=== PATIENT | female | born 1995 | race Caucasian/White ===

== ENCOUNTER 2019-10-30 16:09 | Emergency (ER) | payer BC ==
[~2019-10-30] VITALS: Ht 177.8 cm; Wt 81.8 kg
--- NOTE | 2019-10-30 17:05 | PHYS DOC ---
Past Medical History Past Medical History: Other Additional Past Medical Histor: PCOS Past Surgical History: Cholecystectomy Smoking Status: Former Smoker Alcohol Use: None General Adult EDM: Chief Complaint: ABDOMINAL PAIN IN HPI: HPI: Patient is a 24 year old female who presents with states her last menstrual cycle was September 07, 2019. She has a history of PCOS. She found out last week that she was . She did go to an OB doctor and have it confirmed for her first . She states that she usually always has lower abdominal pain that is constant due to her PCOS but she found out she is she is been very anxious and feels like the pain is exacerbated. She states that she feels pinching in the low mid abdomen that will at times radiate to the left lower side. She states the pain will get better and then get worse or the days. Patient denies dysuria, actual bleeding, abnormal vaginal discharge, fever, c hest pain, shortness of air, cough, dizziness, headache, nausea, and vomiting, diarrhea. She currently rates her pain a 2 out of 10. She denies wanting any Tylenol at this time. Review of Systems: Review of Systems: Constitutional: Denies fever or chills. [] Eyes: Denies change in visual acuity. [] HENT: Denies nasal congestion or sore throat. [] Respiratory: Denies cough or shortness of breath. [] Cardiovascular: Denies chest pain or edema. [] GI: low mid with radiation tot he left abdominal pain, denies nausea, vomiting, bloody stools or diarrhea. [] : Denies dysuria. [] Musculoskeletal: Denies back pain or joint pain. [] Integument: Denies rash. [] Neurologic: Denies headache, focal weakness or sensory changes. [] Endocrine: Denies polyuria or polydipsia. [] Lymphatic: Denies swollen glands. [] Psychiatric: Denies depression or anxiety. [] Heart Score: Risk Factors: Risk Factors: DM, Current or recent (<one month) smoker, HTN, HLP, family history of CAD, obesity. Risk Scores: Score 0 - 3: 2.5% MACE over next 6 weeks - Discharge Home Score 4 - 6: 20.3% MACE over next 6 weeks - Admit for Clinical Observation Score 7 - 10: 72.7% MACE over next 6 weeks - Early Invasive Strategies Physical Exam: PE: Constitutional: Well developed, well nourished, no acute distress, non-toxic appearance. [] HENT: Normocephalic, atraumatic, bilateral external ears normal, oropharynx moist, no oral exudates, nose normal. [] Eyes: PERRLA, EOMI, conjunctiva normal, no discharge. [] Neck: Normal range of motion, no tenderness, supple, no stridor. [] Cardiovascular:Heart rate regular rhythm, no murmur [] Lungs & Thorax: Bilateral breath sounds clear to auscultation [] Abdomen: Bowel sounds normal, soft, Low mid tenderness, no masses, no pulsatile masses. [] Skin: Warm, dry, no erythema, no rash. [] Back: No tenderness, no CVA tenderness. [] Extremities: No tenderness, no cyanosis, no clubbing, ROM intact, no edema. [] Neurologic: Alert and oriented X 3, normal motor function, normal sensory function, no focal deficits noted. [] Psychologic: Affect normal, judgement normal, mood normal. [] Current Patient Data: Labs: Laboratory Tests Test 10/30/19 16:23 POC Urine HCG, Qualitative Hcg positive (Negative) Vital Signs: Vital Signs Date Time Temp Pulse Resp B/P (MAP) Pulse Ox O2 Delivery O2 Flow Rate FiO2 10/30/19 16:10 98.2 77 14 125/77 (93) 100 Room Air 98.2 EKG: EKG: [] Radiology/Procedures: Radiology/Procedures: [] Impression: [facility] [address] [place] [address] IMAGING REPORT Signed PATIENT: JASON JAIME ACCOUNT: [id number] : 1995 LOCATION: ER AGE: 24 SEX: F EXAM STATUS: REG ER ORD. PHYSICIAN: WEN HAIRSTON APRN REASON: abdominal pain PROCEDURE: OB <14 WKS W/TV EXAM: First Trimester OB Ultrasound INDICATION: Reason: abdominal pain / Spl. Instructions: / History: TECHNIQUE: Real-time first trimester obstetrical ultrasound was performed with permanent freeze-frame documentation. Transabdominal and endovaginal ultrasound was performed. COMPARISON: None. FINDINGS: GESTATIONAL SAC: Gestational sac shape and amniotic fluid volume within normal limits. POLE: Unremarkable. Yolk sac visualized. CROWN RUMP LENGTH: 0.7 cm HEART RATE: 122 bpm PLACENTA: Too early to adequately assess. MATERNAL UTERUS: Unremarkable. MATERNAL ADNEXA: Normal left ovary measuring 3.5 x 1.9 x 1.9 cm. The right ovary measures 5.3 x 3.1 x 3.5 cm and contains a 2.2 cm cyst, possible corpus luteum. AGE/DATES: Gestational Age by LMP: 17 weeks 4 days Gestational Age by US: 6 weeks 4 days EDC by LMP: June 13, 2020 EDC by US: June 20, 2020 IMPRESSION: Normal viable first trimester OB ultrasound. Estimated gestational age of 6 weeks 4 days and EDC of June 21, 2019. Electronically signed by: Aneesh Coyle MD (10/30/2019 5:42 PM) [id number] DICTATED and SIGNED BY: ANEESH COYLE MD DATE: 10/30/19 1742 Course & Med Decision Making: Course & Med Decision Making Pertinent Labs and Imaging studies reviewed. (See chart for details) Alert and oriented x2. Speaks in full complete sentences. Ambulatory with a steady gait. Abdomen is soft but low mid abdomen is slightly tender with palpation. Skin is pink warm and dry. Afebrile. [] Dragon Disclaimer: Elise Disclaimer: This electronic medical record was generated, in whole or in part, using a voice recognition dictation system. Departure Departure Impression: Primary Impression: Abdominal pain affecting Disposition: HOME, SELF-CARE Condition: STABLE Referrals: UNKNOWN PCP NAME (PCP) Patient Instructions: Abdominal Pain During Additional Instructions: Follow-up with your OB doctor as scheduled. If you begin having any vaginal bleeding or running a fever you can return to the emergency room or call your OB doctor for a scheduled appointment. Drink plenty of fluids. Justicifation of Admission Dx: Justifications for Admission: Justification of Admission Dx: N/A WEN HAIRSTON APRN Oct 30, 2019 17:05
[2019-10-30 17:11] LABS: BASO # 0.1 x10^3/uL (0.0-0.2); BASO % 0 % (0-3); EOS # 0.1 x10^3/uL (0.0-0.7); EOS % 1 % (0-3); HEMATOCRIT 44.7 % (36.0-47.0); HEMOGLOBIN 15.3 g/dL (12.0-15.5); LYMPH % 13 % (24-48); MEAN CORPUSCULAR HEMOGLOBIN 31 pg (25-35); MEAN CORPUSCULAR HGB CONC 34 g/dL (31-37); MEAN CORPUSCULAR VOLUME 89 fL (79-100); MONO # 0.8 x10^3/uL (0.0-1.1); MONO % 5 % (0-9); NEUT # 12.6 x10^3/uL (1.8-7.7); NEUT % 81 % (31-73); PLATELET COUNT 377 x10^3/uL (140-400); RED BLOOD COUNT 5.03 x10^6/uL (3.50-5.40); RED CELL DISTRIBUTION WIDTH 12.9 % (11.5-14.5); WHITE BLOOD COUNT 15.6 x10^3/uL (4.0-11.0)
[2019-10-30 17:13] LABS: BILIRUBIN,URINE NEGATIVE (NEG); CLARITY,URINE CLEAR; COLOR,URINE YELLOW; NITRITE,URINE NEGATIVE (NEG); PH,URINE 6.5 (<5.0-8.0); PROTEIN,URINE NEGATIVE (NEG-TRACE); UROBILINOGEN,URINE 0.2 mg/dL (0.2 mg/dL)
[2019-10-30 17:20] LABS: PROTHROMBIN TIME PATIENT 12.8 SEC (11.7-14.0)
[2019-10-30 17:23] LABS: CALCIUM 9.6 mg/dL (8.5-10.1); CREATININE 0.7 mg/dL (0.6-1.0); GFR 102.8; POTASSIUM 4.6 mmol/L (3.5-5.1)
[2019-10-30 17:28] LABS: ALBUMIN 4.2 g/dL (3.4-5.0); ALBUMIN/GLOBULIN RATIO 1.2 (1.0-1.7); TOTAL BILIRUBIN 0.4 mg/dL (0.2-1.0); TOTAL PROTEIN 7.6 g/dL (6.4-8.2)
[2019-10-30 17:31] LABS: SQUAMOUS EPITHELIAL CELL,UR MANY /LPF
[2019-10-30 17:32] LABS: BACTERIA,URINE MANY /HPF (0-FEW)
[2019-10-30 17:34] LABS: RBC,URINE 0 /HPF (0-2); WBC,URINE OCC /HPF (0-4)
--- NOTE | 2019-10-30 17:45 | RAD ---
EXAM: First Trimester OB Ultrasound INDICATION: Reason: abdominal pain / Spl. Instructions: / History: TECHNIQUE: Real-time first trimester obstetrical ultrasound was performed with permanent freeze-frame documentation. Transabdominal and endovaginal ultrasound was performed. COMPARISON: None. FINDINGS: GESTATIONAL SAC: Gestational sac shape and amniotic fluid volume within normal limits. POLE: Unremarkable. Yolk sac visualized. CROWN RUMP LENGTH: 0.7 cm HEART RATE: 122 bpm PLACENTA: Too early to adequately assess. MATERNAL UTERUS: Unremarkable. MATERNAL ADNEXA: Normal left ovary measuring 3.5 x 1.9 x 1.9 cm. The right ovary measures 5.3 x 3.1 x 3.5 cm and contains a 2.2 cm cyst, possible corpus luteum. AGE/DATES: Gestational Age by LMP: 17 weeks 4 days Gestational Age by US: 6 weeks 4 days EDC by LMP: June 13, 2020 EDC by US: June 20, 2020 IMPRESSION: Normal viable first trimester OB ultrasound. Estimated gestational age of 6 weeks 4 days and EDC of June 21, 2019. Electronically signed by: Brian Hernadez MD (10/30/2019 5:42 PM) [id number]
[2019-10-30 17:55] LABS: % BANDS 3 % (0-9); % LYMPHS 19 % (24-48); % MONOS 3 % (0-10); % SEGS 75 % (35-66)
[2019-10-30 17:57] LABS: PLT ESTIMATE ADEQUATE (ADEQUATE); TOXIC GRANULATION SLIGHT
[2019-10-30 18:00] VITALS: BP 129/57
== END 2019-10-30 18:29 | disposition home or self-care (01) ==
LOC: ER 16:09
DX: O26.891 Other specified pregnancy related conditions, first trimester (principal); R10.30 Lower abdominal pain, unspecified; Z90.49 Acquired absence of other specified parts of digestive tract; Z87.891 Personal history of nicotine dependence; Z3A.01 Less than 8 weeks gestation of pregnancy
CPT/HCPCS: 36415; 76801; 76817; 80053; 81001; 81025; 84702; 85007; 85025; 85610; 87086; 99284

== ENCOUNTER 2019-11-15 22:10 | Emergency (ER) | payer BC ==
[~2019-11-15] VITALS: Ht 180.3 cm; Wt 81.8 kg
[2019-11-15 22:48] LABS: BILIRUBIN,URINE NEGATIVE (NEG); CLARITY,URINE CLEAR; NITRITE,URINE NEGATIVE (NEG); PROTEIN,URINE NEGATIVE (NEG-TRACE); UROBILINOGEN,URINE 0.2 mg/dL (0.2 mg/dL)
[2019-11-15 22:53] LABS: COLOR,URINE STRAW
[2019-11-15 22:55] LABS: BACTERIA,URINE 0 /HPF (0-FEW); RBC,URINE RARE /HPF (0-2); SQUAMOUS EPITHELIAL CELL,UR OCC /LPF; WBC,URINE 0 /HPF (0-4)
[2019-11-16 00:39] VITALS: BP 121/59
--- NOTE | 2019-11-16 01:31 | RAD ---
INDICATION: Reason: vaginal bleeding; abdomen pain; prev sono done 10/30/2019 / Spl. Instructions: / History: COMPARISON: October 30, 2019 TECHNIQUE: Grayscale and color ultrasound images uterus and adnexa. Transabdominal and transvaginal images obtained. Transvaginal images were needed to better visualize structures that were limited on transabdominal imaging. FINDINGS: Uterus: 102 x 79 x 58 mm. Intrauterine gestational sac is identified with a pole with a crown-rump length of 24 mm heartbeat of 173. Probable corpus luteum cyst right ovary. 2 early in to adequately assess placenta. Right Ovary: 45 x 29 x 27 mm. Left Ovary: 36 x 29 x 29 mm. Vascular flow identified to bilateral ovaries. IMPRESSION: * Intrauterine is identified with estimated gestational age of 9 weeks and 1 day with a positive heartbeat. Recommend routine anomaly screening at 18-22 weeks. Electronically signed by: Obdulio Abbott MD (11/16/2019 1:28 AM) [id number]
--- NOTE | 2019-11-16 01:39 | PHYS DOC ---
Past Medical History Past Medical History: Endometriosis, P.I.D., Other Additional Past Medical Histor: PCOS Past Surgical History: Cholecystectomy Smoking Status: Former Smoker Alcohol Use: None General Adult EDM: Chief Complaint: VAGINAL BLEEDING HPI: HPI: Patient is a 24-year-old G1, P0 at 10 weeks gestation who presents to the emergency room complaining of lower abdominal cramping and spotting. She states she had one episode of spotting and the bleeding has not stopped. She continues to have intermittent cramping. She states that she has PCO S syndrome and was never meant to get . She is very concerned about the wellbeing of her fetus. She denies any dysuria or vaginal discharge. She denies any fever. Review of Systems: Review of Systems: General: Denies fever, chills, sweats, fatigue Eyes: Denies drainage, blurred vision, eye redness HENT: Denies rhinorrhea, sore throat, earache Respiratory: Denies cough, shortness of breath, wheezing Cardiac: Denies edema, palpitations, chest pain GI: Denies nausea, vomiting. Reports abdominal cramping, vaginal bleeding MSK: Denies back pain, neck pain Skin: Denies rash, jaundice Neuro: Denies headache, dizziness Psychiatric: Denies SI/HI Heart Score: Risk Factors: Risk Factors: DM, Current or recent (<one month) smoker, HTN, HLP, family history of CAD, obesity. Risk Scores: Score 0 - 3: 2.5% MACE over next 6 weeks - Discharge Home Score 4 - 6: 20.3% MACE over next 6 weeks - Admit for Clinical Observation Score 7 - 10: 72.7% MACE over next 6 weeks - Early Invasive Strategies Allergies: Allergies: Allergies Coded Allergies Type Severity Reaction Last Updated Verified cephalexin Allergy Unknown 11/15/19 Yes Physical Exam: PE: General: Awake, alert, NAD. Well Nourished, well hydrated. Cooperative HEENT: Atraumatic, EOMI, PERRL, airway patent, moist oral mucosa Neck: Supple, trachea midline Respiratory: CTA bilaterally, normal effort, no wheezing/crackles CV: RRR, no murmur, cap refill <2 GI: Soft, nondistended, nontender, no masses MSK: No obvious deformities Skin: Warm, dry, intact Neuro: A&O x3, speech NL, sensory and motor grossly intact, no focal deficits Psych: Normal affect, normal mood, not suicidal or homicidal Current Patient Data: Labs: Laboratory Tests Test 11/15/19 22:40 11/15/19 22:48 11/15/19 23:15 Urine Collection Type Unknown Urine Color Straw Urine Clarity Clear Urine pH 6.0 (<5.0-8.0) Urine Specific [place] <=1.005 (1.000-1.030) Urine Protein Negative mg/dL (NEG-TRACE) Urine Glucose (UA) Negative mg/dL (NEG) Urine Ketones (Stick) Negative mg/dL (NEG) Urine Blood Negative (NEG) Urine Nitrite Negative (NEG) Urine Bilirubin Negative (NEG) Urine Urobilinogen Dipstick 0.2 mg/dL (0.2 mg/dL) Urine Leukocyte Esterase Negative (NEG) Urine RBC Rare /HPF (0-2) Urine WBC 0 /HPF (0-4) Urine Squamous Epithelial Cells Occ /LPF Urine Bacteria 0 /HPF (0-FEW) POC Urine HCG, Qualitative Hcg positive (Negative) Maternal Serum HCG Beta Subunit 27883 mIU/mL (0-5) H Vital Signs: Vital Signs Date Time Temp Pulse Resp B/P (MAP) Pulse Ox O2 Delivery O2 Flow Rate FiO2 11/15/19 22:55 97.3 84 16 122/65 (84) 99 Room Air 97.3 EKG: EKG: [] Radiology/Procedures: Radiology/Procedures: [] Course & Med Decision Making: Course & Med Decision Making Pertinent Labs and Imaging studies reviewed. (See chart for details) Patient is a 24 year-old G 1 P 0 who presents to the Emergency Room with vaginal bleeding and abdominal cramping. Patient has not seen passage of tissue. She has not had a formal ultrasound and does not have a confirmed IUP. UA, Rh type, OB ultrasound, test were ordered. At this time, ultrasound shows IUP. Patient does need rhogam. I have discussed with the patient that they are likely have a threatened . We have discussed early on in we are unable to prevent miscarriages. We will discussed pelvic rest until she follows up with OBGYN. She will return to the Emergency Room if she has a large amount of bleeding, syncope, SOB. Patient's test results and vitals while in the ED were fully reviewed and discussed with the patient. Patient is stable and at this time does not need admission to the hospital. We have discussed strict return precautions and the importance of following up with their Primary Care Physician. Patient stated understanding and was given an opportunity to ask any questions. Elise Disclaimer: Dragon Disclaimer: This electronic medical record was generated, in whole or in part, using a voice recognition dictation system. Departure Departure Impression: Primary Impression: Vaginal bleeding affecting early Disposition: HOME, SELF-CARE Condition: STABLE Referrals: UNKNOWN PCP NAME (PCP) Patient Instructions: Vaginal Bleeding During , First Trimester Justicifation of Admission Dx: Justifications for Admission: Justification of Admission Dx: N/A VERO REMY MD Nov 16, 2019 01:39
== END 2019-11-16 01:47 | disposition home or self-care (01) ==
LOC: ER 22:10
DX: O46.91 Antepartum hemorrhage, unspecified, first trimester (principal); R10.30 Lower abdominal pain, unspecified; Z90.49 Acquired absence of other specified parts of digestive tract; Z87.891 Personal history of nicotine dependence; Z88.1 Allergy status to other antibiotic agents; Z3A.10 10 weeks gestation of pregnancy
CPT/HCPCS: 36415; 76801; 76817; 81001; 81025; 84702; 86900; 86901; 99284

== ENCOUNTER 2019-12-12 13:27 | Inpatient (IN) | payer BC ==
[~2019-12-12] VITALS: Ht 180.3 cm; Wt 93.3 kg
[2019-12-12] MEDS ORDERED: IV NORMAL SALINE 1000ML BAG 1,000 ML IV SCH (13:53)
[2019-12-12 14:24] LABS: BILIRUBIN,URINE NEGATIVE (NEG); COLOR,URINE YELLOW; NITRITE,URINE NEGATIVE (NEG); PROTEIN,URINE NEGATIVE (NEG-TRACE); UROBILINOGEN,URINE 0.2 mg/dL (0.2 mg/dL)
[2019-12-12 14:25] LABS: BASO % 0 % (0-3); EOS # 0.1 x10^3/uL (0.0-0.7); EOS % 1 % (0-3); HEMATOCRIT 41.1 % (36.0-47.0); HEMOGLOBIN 14.1 g/dL (12.0-15.5); LYMPH # 2.5 x10^3/uL (1.0-4.8); LYMPH % 26 % (24-48); MEAN CORPUSCULAR HEMOGLOBIN 30 pg (25-35); MEAN CORPUSCULAR HGB CONC 34 g/dL (31-37); MEAN CORPUSCULAR VOLUME 88 fL (79-100); MONO # 0.5 x10^3/uL (0.0-1.1); MONO % 5 % (0-9); NEUT # 6.5 x10^3/uL (1.8-7.7); NEUT % 67 % (31-73); PLATELET COUNT 244 x10^3/uL (140-400); RED BLOOD COUNT 4.68 x10^6/uL (3.50-5.40); RED CELL DISTRIBUTION WIDTH 12.7 % (11.5-14.5); WHITE BLOOD COUNT 9.7 x10^3/uL (4.0-11.0)
[2019-12-12] MEDS ORDERED: ACETAMINOPHEN 500 MG TABLET PO ONE (14:30)
[2019-12-12 14:35] LABS: CALCIUM 8.9 mg/dL (8.5-10.1); CREATININE 0.5 mg/dL (0.6-1.0); GFR 151.6; POTASSIUM 3.8 mmol/L (3.5-5.1)
[2019-12-12 14:37] LABS: PROTHROMBIN TIME PATIENT 12.5 SEC (11.7-14.0)
[2019-12-12 14:38] LABS: CLARITY,URINE CLEAR
[2019-12-12 14:39] LABS: ALBUMIN 3.3 g/dL (3.4-5.0); BACTERIA,URINE FEW /HPF (0-FEW); RBC,URINE 0 /HPF (0-2); SQUAMOUS EPITHELIAL CELL,UR FEW /LPF; TOTAL BILIRUBIN 0.3 mg/dL (0.2-1.0); TOTAL PROTEIN 6.7 g/dL (6.4-8.2); WBC,URINE OCC /HPF (0-4)
--- NOTE | 2019-12-12 14:41 | PHYS DOC ---
Past Medical History Past Medical History: Endometriosis, Ovarian Cyst Additional Past Medical Histor: Polycystic ovarian disease Past Surgical History: Cholecystectomy, Tonsillectomy Smoking Status: Former Smoker Additional Information: quit smoking 2 weeks ago Alcohol Use: None General Adult EDM: Chief Complaint: ABDOMINAL PAIN HPI: HPI: Patient is a 24 year old very anxious female who presents with sent here from [facility] after she called them and told them that she was continuously having right lower abdominal pain that is sharp. She states this started y day after she was having intercourse. She states that right after the intercourse she had some pink-tinged vaginal discharge but that has since stopped. She states her last menstrual period was September 06. She has had a ultrasound already from [facility] OB doctor 2 weeks ago. She was seen this last Monday for this same lower abdominal pain and was told that it was ligament pain. She states that she has not been taking anything at home for pain. She states that she got very frightened when they said it could be her appendix today. She is very tearful in the room. She states 3 days ago she had some diarrhea. She states that she is always nauseated but is not been vomiting. She states the pain is worse when she stands and walks. She denies dysuria symptoms, vomiting, fever, rectal pressure, constipation, abnormal vaginal discharge other than after she had sexual intercourse, vaginal bleeding, chest pain, shortness of air, headache, dizziness, syncope, focal weakness, numbness or tingling. She has a history of anxiety, polycystic ovaries, cholecystectomy, tonsillectomy. She states that the sexual intercourse yesterday was very painful and only lasted about a minute. Patient is currently rating her pain an 8 out of 10. Review of Systems: Review of Systems: Constitutional: Denies fever or chills. [] Eyes: Denies change in visual acuity. [] HENT: Denies nasal congestion or sore throat. [] Respiratory: Denies cough or shortness of breath. [] Cardiovascular: Denies chest pain or edema. [] GI: Positive for right lower abdominal pain, positive for nausea, denies vomiting, bloody stools or diarrhea. [] : Denies dysuria. Positive for painful sexual intercourse and pink discharge after sexual intercourse yesterday [] Musculoskeletal: Denies back pain or joint pain. [] Integument: Denies rash. [] Neurologic: Denies headache, focal weakness or sensory changes. [] Endocrine: Denies polyuria or polydipsia. [] Lymphatic: Denies swollen glands. [] Psychiatric: Denies depression. Positive for anxiety. [] Heart Score: Risk Factors: Risk Factors: DM, Current or recent (<one month) smoker, HTN, HLP, family history of CAD, obesity. Risk Scores: Score 0 - 3: 2.5% MACE over next 6 weeks - Discharge Home Score 4 - 6: 20.3% MACE over next 6 weeks - Admit for Clinical Observation Score 7 - 10: 72.7% MACE over next 6 weeks - Early Invasive Strategies Current Medications: Current Medications Medications (Trade) Dose Ordered Sig/Aleta Start Time Stop Time Status Last Admin Dose Admin Acetaminophen (Tylenol) 1,000 mg 1X ONCE 12/12/19 14:30 12/12/19 14:31 DC 12/12/19 14:32 1,000 MG Sodium Chloride 1,000 ml @ 1,000 mls/hr Q1H 12/12/19 13:53 12/12/19 14:52 12/12/19 14:32 1,000 MLS/HR Allergies: Allergies: Allergies Coded Allergies Type Severity Reaction Last Updated Verified cephalexin Allergy Unknown 11/15/19 Yes Physical Exam: PE: Constitutional: Well developed, well nourished, no acute distress, non-toxic appearance. [] HENT: Normocephalic, atraumatic, bilateral external ears normal, oropharynx moist, no oral exudates, nose normal. [] Eyes: PERRLA, EOMI, conjunctiva normal, no discharge. [] Neck: Normal range of motion, no tenderness, supple, no stridor. [] Cardiovascular:Heart rate regular rhythm, no murmur [] Lungs & Thorax: Bilateral breath sounds clear to auscultation [] Abdomen: Bowel sounds normal, soft, no tenderness, no masses, no pulsatile masses. [] Skin: Warm, dry, no erythema, no rash. [] Back: No tenderness, no CVA tenderness. [] Extremities: No tenderness, no cyanosis, no clubbing, ROM intact, no edema. [] Neurologic: Alert and oriented X 3, normal motor function, normal sensory function, no focal deficits noted. [] Psychologic: Affect normal, judgement normal, mood normal. Very anxious. [] Current Patient Data: Labs: Laboratory Tests Test 12/12/19 14:15 White Blood Count 9.7 x10^3/uL (4.0-11.0) Red Blood Count 4.68 x10^6/uL (3.50-5.40) Hemoglobin 14.1 g/dL (12.0-15.5) Hematocrit 41.1 % (36.0-47.0) Mean Corpuscular Volume 88 fL (79-100) Mean Corpuscular Hemoglobin 30 pg (25-35) Mean Corpuscular Hemoglobin Concent 34 g/dL (31-37) Red Cell Distribution Width 12.7 % (11.5-14.5) Platelet Count 244 x10^3/uL (140-400) Neutrophils (%) (Auto) 67 % (31-73) Lymphocytes (%) (Auto) 26 % (24-48) Monocytes (%) (Auto) 5 % (0-9) Eosinophils (%) (Auto) 1 % (0-3) Basophils (%) (Auto) 0 % (0-3) Neutrophils # (Auto) 6.5 x10^3/uL (1.8-7.7) Lymphocytes # (Auto) 2.5 x10^3/uL (1.0-4.8) Monocytes # (Auto) 0.5 x10^3/uL (0.0-1.1) Eosinophils # (Auto) 0.1 x10^3/uL (0.0-0.7) Basophils # (Auto) 0.0 x10^3/uL (0.0-0.2) Laboratory Tests 12/12/19 14:15 Vital Signs: Vital Signs Date Time Temp Pulse Resp B/P (MAP) Pulse Ox O2 Delivery O2 Flow Rate FiO2 12/12/19 13:39 97.8 69 97 Room Air 97.8 EKG: EKG: [] Radiology/Procedures: Radiology/Procedures: [] Impression: [facility] [address] [place] [address] IMAGING REPORT Signed PATIENT: JASON JAIME ACCOUNT: [id number] : 1995 LOCATION: ER AGE: 24 SEX: F EXAM STATUS: REG ER ORD. PHYSICIAN: WEN HAIRSTON APRN REASON: check appendix, right lower quad pain PROCEDURE: ABDOMEN LTD ABDOMEN LTD History: Right lower quadrant pain, rebound tenderness Comparison: None. Findings: Multiple sonographic images of the right lower quadrant are submitted. Interpretation is made without the benefit of real-time exam. There is a tubular structure in the right lower quadrant. If this does indeed represent the appendix, this does not significantly compress, caliber considered dilated about 1 cm if this is indeed the appendix. No free fluid is demonstrated. Impression: 1. There is a tubular structure in the right lower quadrant which may be noncompressible, dilated appendix which may be seen with acute appendicitis in the appropriate clinical setting. Electronically signed by: Haroldo Loomis MD (12/12/2019 3:30 PM) [id number] DICTATED and SIGNED BY: HAROLDO LOOMIS MD DATE: 12/12/19 1530 [facility] [address] [place], [place] [id number] IMAGING REPORT Signed PATIENT: JASON JAIME ACCOUNT: [id number] : 1995 LOCATION: ER AGE: 24 SEX: F EXAM STATUS: REG ER ORD. PHYSICIAN: WEN HAIRSTON APRN REASON: check appendix, right lower quad pain PROCEDURE: OB < 14 WKS OB < 14 WKS History: Right lower quadrant pain, Comparison: None. Findings: Multiple transabdominal sonographic images of the pelvis are submitted. There is single intrauterine gestational sac and fetus, demonstrable cardiac activity 145 bpm. Gestational sac morphology is within normal limits. There is identifiable pole. [place]-rump length measurement of 5.97 cm corresponds with 12 weeks 3 days. Adjusted ultrasound age is 12 weeks 3 days with estimated delivery date of 06/22/2020. LMP age is 12 weeks 6 days with estimated delivery date of 06/19/2020. Uterus measured 14.5 x 9.7 x 10.6 cm. Placenta and anatomy are not well visualized at this age of the . Amniotic fluid volume is within normal limits. No free fluid is demonstrated. Right ovary measured 4 x 2.3 x 4.6 cm, normal low resistance vascularity. There is a hypoechoic focus of the right ovary up to 1.8 x 1.5 x 1.3 cm. Left ovary could not be visualized. Impression: 1. There is a single viable intrauterine , adjusted ultrasound age 12 weeks 3 days with estimated delivery date by ultrasound 06/22/2020. 2. There is small cyst or dominant follicle of the right ovary, no free fluid. Electronically signed by: Haroldo Loomis MD (12/12/2019 3:33 PM) [id number] DICTATED and SIGNED BY: HAROLDO LOOMIS MD DATE: 12/12/19 1533 Course & Med Decision Making: Course & Med Decision Making Pertinent Labs and Imaging studies reviewed. (See chart for details) Speaks in full complete sentences. She does not have any abdominal tenderness. Ambulatory with a steady gait. Skin pink warm and dry. Afebrile. Patient states she is not been leaking any fluid. No extremity edema. I have talked to Dr. Castaneda concerning this patient. I have talked to Dr. Goins he states to admit the patient and watch her overnight. He states do not start antibiotics on the patient. He states that blood should be redrawn in the morni ng. Patient is admitted by Dr. Ypi. [] Elise Disclaimer: Elise Disclaimer: This electronic medical record was generated, in whole or in part, using a voice recognition dictation system. Departure Departure Impression: Primary Impression: Acute appendicitis affecting Disposition: ADMITTED INPATIENT Admitting Physician: HIMLupe Condition: STABLE Referrals: UNKNOWN PCP NAME (PCP) Justicifation of Admission Dx: Justifications for Admission: Justification of Admission Dx: Yes Comments: ACUTE APPENDICITIS WEN HAIRSTON ADJUNCT HISTORY INSTRUCTOR Dec 12, 2019 14:41
--- NOTE | 2019-12-12 15:32 | RAD ---
ABDOMEN LTD History: Right lower quadrant pain, rebound tenderness Comparison: None. Findings: Multiple sonographic images of the right lower quadrant are submitted. Interpretation is made without the benefit of real-time exam. There is a tubular structure in the right lower quadrant. If this does indeed represent the appendix, this does not significantly compress, caliber considered dilated about 1 cm if this is indeed the appendix. No free fluid is demonstrated. Impression: 1. There is a tubular structure in the right lower quadrant which may be noncompressible, dilated appendix which may be seen with acute appendicitis in the appropriate clinical setting. Electronically signed by: Nguyễn Mendiola MD (12/12/2019 3:30 PM) [id number]
--- NOTE | 2019-12-12 15:36 | RAD ---
OB < 14 WKS History: Right lower quadrant pain, Comparison: None. Findings: Multiple transabdominal sonographic images of the pelvis are submitted. There is single intrauterine gestational sac and fetus, demonstrable cardiac activity 145 bpm. Gestational sac morphology is within normal limits. There is identifiable pole. [place]-rump length measurement of 5.97 cm corresponds with 12 weeks 3 days. Adjusted ultrasound age is 12 weeks 3 days with estimated delivery date of 06/22/2020. LMP age is 12 weeks 6 days with estimated delivery date of 06/19/2020. Uterus measured 14.5 x 9.7 x 10.6 cm. Placenta and anatomy are not well visualized at this age of the . Amniotic fluid volume is within normal limits. No free fluid is demonstrated. Right ovary measured 4 x 2.3 x 4.6 cm, normal low resistance vascularity. There is a hypoechoic focus of the right ovary up to 1.8 x 1.5 x 1.3 cm. Left ovary could not be visualized. Impression: 1. There is a single viable intrauterine , adjusted ultrasound age 12 weeks 3 days with estimated delivery date by ultrasound 06/22/2020. 2. There is small cyst or dominant follicle of the right ovary, no free fluid. Electronically signed by: Nguyễn Mendiola MD (12/12/2019 3:33 PM) [id number]
[2019-12-12] MEDS ORDERED: ACETAMINOPHEN 325 MG TABLET. PO PRN (17:00)
[2019-12-12] MEDS ORDERED: ONDANSETRON PF 4 MG/2 ML VIAL. IV PRN (17:00)
--- NOTE | 2019-12-12 18:02 | PDOC1 ---
History and Physical Date of Admission Date of Admission DATE: 12/12/19 TIME: 18:01 Identification/Chief Complaint Chief Complaint Abdominal pain Source Source: Patient History of Present Illness History of Present Illness Ms Grewal is a 24 yo F w/ PMHx anxiety, ?PCOS presents from her [facility] after she called them and told them that she was continuously having right lower abdominal pain that is sharp. Pain began after intercourse on 12/11/2019. She noted slight vaginal bleeding that resolved after minutes. 3 days ago she had some diarrhea. She states that she is always nauseated but is not been vomiting. She notes no fever but does note the pain shifted to her right lower quadrant and has been sharp in quality which is a new type of abdominal pain for her. Rating her pain an 8 out of 10. 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 Seen 12/05 for lower abdominal pain in her pelvis and rectal area which she describes as aching and this pain is actually improved today and different from her current pain. She is tearful, and states she she feels she has had her pain dismissed frequently and notes a long history of chronic variable pelvic and abdominal pain to me lasting greater than a year. She relates she has been told this is ligament pain, PCOS, and endometriosis. She states that she has not been taking anything at home for pain. She was adverse to taking even acetaminophen or stadol here. No chest pain, shortness of air, headache, dizziness, syncope, focal weakness, numbness or tingling. No recent sick contacts, no exposure to COVID 19. Labs unremarkable, afebrile. Abdominal US with viable intrauterine , adjusted ultrasound age 12 weeks 3 days with estimated delivery date by ultrasound 06/22/2020 and right ovarian cyst. Separate appendiceal US revealed non-compressible possible appendicitis. Admitted for further care. Past Medical History Cardiovascular: No pertinent hx Past Surgical History Past Surgical History: Cholecystectomy, Tonsillectomy Family History Family History: Hypertension Social History Smoke: Quit ALCOHOL: none Drugs: None Current Problem List Problem List Problems Medical Problems: (1) Acute appendicitis affecting Status: Acute Current Medications Current Medications Current Medications Sodium Chloride 1,000 ml @ 1,000 mls/hr Q1H IV Last administered on 12/12/19at 14:32; Start 12/12/19 at 13:53; Stop 12/12/19 at 14:52; Status DC Acetaminophen (Tylenol) 1,000 mg 1X ONCE PO Last administered on 12/12/19at 14:32; Start 12/12/19 at 14:30; Stop 12/12/19 at 14:31; Status DC Ondansetron HCl (Zofran) 4 mg PRN Q8HRS PRN IV NAUSEA/VOMITING; Start 12/12/19 at 17:00; Stop 12/13/19 at 16:59 Acetaminophen (Tylenol) 650 mg PRN Q4HRS PRN PO FEVER > 100.3'F; Start 12/12/19 at 17:00; Stop 12/13/19 at 16:59 Allergies Allergies: Coded Allergies: cephalexin (Verified Allergy, Unknown, 11/15/19) ROS General: YES: Fatigue, Malaise; No: Chills, Night Sweats, Appetite, Other PSYCHOLOGICAL ROS: YES: Anxiety, Irritablity, Mood Swings, Obsessive thoughts, Sleep disturbances; No: Behavioral Disorder, Concentration difficultie, Decreased libido, Depression, Disorientation, Hallucinations, Hostility, Memory difficulties, Physical abuse, Sexual abuse, Suicidal ideation, Other Eyes: No Blurry vision, No Decreased vision, No Double vision, No Dry eyes, No Excessive tearing, No Eye Pain, No Itchy Eyes, No Loss of vision, No Photophobia, No Scotomata, No Uses contacts, No Uses glasses, No Other HEENT: No: Heacaches, Visual Changes, Hearing change, Nasal congestion, Nasal discharge, Oral lesions, Sinus pain, Sore Throat, Epistaxis, Sneezing, Snoring, Tinnitus, Vertigo, Vocal changes, Other ALLERGY AND IMMUNOLOGY: No: Hives, Insect Bite Sensitivity, Itchy/Watery Eyes, Nasal Congestion, Post Nasal Drip, Seasonal Allergies, Other Hematological and Lymphatic: No: Bleeding Problems, Blood Clots, Blood Transfusions, Brusing, Night Sweats, Pallor, Swollen Lymph Nodes, Other ENDOCRINE: No: Breast Changes, Galactorrhea, Hair Pattern Changes, Hot Flashes, Malaise/lethargy, Mood Swings, Palpitations, Polydipsia/polyuria, Skin Changes, Temperature Intolerance, Unexpected Weight Changes, Other Breast: No New/Changing Breast Lumps, No Nipple changes, No Nipple discharge, No Other Respiratory: No: Cough, Hemoptysis, Orthopnea, Pleuritic Pain, Shortness of breath, SOB with excertion, Sputum Changes, Stridor, Tachypnea, Wheezing, Other Cardiovascular: No Chest Pain, No Palpitations, No Orthopnea, No Paroxysmal Noc. Dyspnea, No Edema, No Lt Headedness, No Other Gastrointestinal: Yes Nausea, Yes Abdominal Pain, Yes Constipation; No Vomiting, No Diarrhea, No Melena, No Hematochezia, No Other Genitourinary: No Dysuria, No Frequency, No Incontinence, No Hematuria, No Retention, No Discharge, No Urgency, No Pain, No Flank Pain, No Other, No , No , No , No , No , No , No Musculoskeletal: No Gait Disturbance, No Joint Pain, No Joint Stiffness, No Joint Swelling, No Muscle Pain, No Muscular Weakness, No Pain In:, No Swelling In:, No Other Neurological: No Behavorial Changes, No Bowel/Bladder ControlChng, No Confusion, No Dizziness, No Gait Disturbance, No Headaches, No Impaired Coord/balance, No Memory Loss, No Numbness/Tingling, No Seizures, No Speech Problems, No Tremors, No Visual Changes, No Weakness, No Other Skin: No Dry Skin, No Eczema, No Hair Changes, No Lumps, No Mole Changes, No Mottling, No Nail Changes, No Pruritus, No Rash, No Skin Lesion Changes, No Other, No Acne Physical Exam General: Alert, Oriented X3, Cooperative, mild distress HEENT: Atraumatic, PERRLA, EOMI, Mucous membr. moist/pink Lungs: Clear to auscultation, Normal air movement Heart: S1S2, RRR, no thrills, no rubs, no gallops, no murmurs Abdomen: Normal bowel sounds, Soft, No hepatosplenomegaly, No masses, Other (RLQ tenderness) Extremities: No clubbing, No cyanosis, No edema, Normal pulses, No tenderness/swelling Skin: No rashes, No breakdown, No significant lesion Neuro: Normal gait, Normal speech, Strength at 5/5 X4 ext, Normal tone, Sensation intact, Cranial nerves 3-12 NL, Reflexes 2+ Vitals Vitals Vital Signs Date Time Temp Pulse Resp B/P (MAP) Pulse Ox O2 Delivery O2 Flow Rate FiO2 12/12/19 13:39 97.8 69 97 Room Air 97.8 Labs Labs Laboratory Tests Test 12/12/19 14:15 White Blood Count 9.7 x10^3/uL (4.0-11.0) Red Blood Count 4.68 x10^6/uL (3.50-5.40) Hemoglobin 14.1 g/dL (12.0-15.5) Hematocrit 41.1 % (36.0-47.0) Mean Corpuscular Volume 88 fL (79-100) Mean Corpuscular Hemoglobin 30 pg (25-35) Mean Corpuscular Hemoglobin Concent 34 g/dL (31-37) Red Cell Distribution Width 12.7 % (11.5-14.5) Platelet Count 244 x10^3/uL (140-400) Neutrophils (%) (Auto) 67 % (31-73) Lymphocytes (%) (Auto) 26 % (24-48) Monocytes (%) (Auto) 5 % (0-9) Eosinophils (%) (Auto) 1 % (0-3) Basophils (%) (Auto) 0 % (0-3) Neutrophils # (Auto) 6.5 x10^3/uL (1.8-7.7) Lymphocytes # (Auto) 2.5 x10^3/uL (1.0-4.8) Monocytes # (Auto) 0.5 x10^3/uL (0.0-1.1) Eosinophils # (Auto) 0.1 x10^3/uL (0.0-0.7) Basophils # (Auto) 0.0 x10^3/uL (0.0-0.2) Prothrombin Time 12.5 SEC (11.7-14.0) Prothromb Time International Ratio 1.0 (0.8-1.1) Urine Collection Type Unknown Urine Color Yellow Urine Clarity Clear Urine pH 7.0 (<5.0-8.0) Urine Specific [place] 1.015 (1.000-1.030) Urine Protein Negative mg/dL (NEG-TRACE) Urine Glucose (UA) Negative mg/dL (NEG) Urine Ketones (Stick) Negative mg/dL (NEG) Urine Blood Negative (NEG) Urine Nitrite Negative (NEG) Urine Bilirubin Negative (NEG) Urine Urobilinogen Dipstick 0.2 mg/dL (0.2 mg/dL) Urine Leukocyte Esterase Negative (NEG) Urine RBC 0 /HPF (0-2) Urine WBC Occ /HPF (0-4) Urine Squamous Epithelial Cells Few /LPF Urine Bacteria Few /HPF (0-FEW) Maternal Serum HCG Beta Subunit 92770 mIU/mL (0-5) Sodium Level 137 mmol/L (136-145) Potassium Level 3.8 mmol/L (3.5-5.1) Chloride Level 104 mmol/L (98-107) Carbon Dioxide Level 24 mmol/L (21-32) Anion Gap 9 (6-14) Blood Urea Nitrogen 7 mg/dL (7-20) Creatinine 0.5 mg/dL (0.6-1.0) Estimated GFR (Cockcroft-Gault) 151.6 BUN/Creatinine Ratio 14 (6-20) Glucose Level 82 mg/dL (70-99) Calcium Level 8.9 mg/dL (8.5-10.1) Total Bilirubin 0.3 mg/dL (0.2-1.0) Aspartate Amino Transf (AST/SGOT) 12 U/L (15-37) Alanine Aminotransferase (ALT/SGPT) 14 U/L (14-59) Alkaline Phosphatase 46 U/L (46-116) Total Protein 6.7 g/dL (6.4-8.2) Albumin 3.3 g/dL (3.4-5.0) Albumin/Globulin Ratio 1.0 (1.0-1.7) Laboratory Tests Test 12/12/19 14:15 White Blood Count 9.7 x10^3/uL (4.0-11.0) Red Blood Count 4.68 x10^6/uL (3.50-5.40) Hemoglobin 14.1 g/dL (12.0-15.5) Hematocrit 41.1 % (36.0-47.0) Mean Corpuscular Volume 88 fL (79-100) Mean Corpuscular Hemoglobin 30 pg (25-35) Mean Corpuscular Hemoglobin Concent 34 g/dL (31-37) Red Cell Distribution Width 12.7 % (11.5-14.5) Platelet Count 244 x10^3/uL (140-400) Neutrophils (%) (Auto) 67 % (31-73) Lymphocytes (%) (Auto) 26 % (24-48) Monocytes (%) (Auto) 5 % (0-9) Eosinophils (%) (Auto) 1 % (0-3) Basophils (%) (Auto) 0 % (0-3) Neutrophils # (Auto) 6.5 x10^3/uL (1.8-7.7) Lymphocytes # (Auto) 2.5 x10^3/uL (1.0-4.8) Monocytes # (Auto) 0.5 x10^3/uL (0.0-1.1) Eosinophils # (Auto) 0.1 x10^3/uL (0.0-0.7) Basophils # (Auto) 0.0 x10^3/uL (0.0-0.2) Prothrombin Time 12.5 SEC (11.7-14.0) Prothromb Time International Ratio 1.0 (0.8-1.1) Urine Collection Type Unknown Urine Color Yellow Urine Clarity Clear Urine pH 7.0 (<5.0-8.0) Urine Specific [place] 1.015 (1.000-1.030) Urine Protein Negative mg/dL (NEG-TRACE) Urine Glucose (UA) Negative mg/dL (NEG) Urine Ketones (Stick) Negative mg/dL (NEG) Urine Blood Negative (NEG) Urine Nitrite Negative (NEG) Urine Bilirubin Negative (NEG) Urine Urobilinogen Dipstick 0.2 mg/dL (0.2 mg/dL) Urine Leukocyte Esterase Negative (NEG) Urine RBC 0 /HPF (0-2) Urine WBC Occ /HPF (0-4) Urine Squamous Epithelial Cells Few /LPF Urine Bacteria Few /HPF (0-FEW) Maternal Serum HCG Beta Subunit 92469 mIU/mL (0-5) Sodium Level 137 mmol/L (136-145) Potassium Level 3.8 mmol/L (3.5-5.1) Chloride Level 104 mmol/L (98-107) Carbon Dioxide Level 24 mmol/L (21-32) Anion Gap 9 (6-14) Blood Urea Nitrogen 7 mg/dL (7-20) Creatinine 0.5 mg/dL (0.6-1.0) Estimated GFR (Cockcroft-Gault) 151.6 BUN/Creatinine Ratio 14 (6-20) Glucose Level 82 mg/dL (70-99) Calcium Level 8.9 mg/dL (8.5-10.1) Total Bilirubin 0.3 mg/dL (0.2-1.0) Aspartate Amino Transf (AST/SGOT) 12 U/L (15-37) Alanine Aminotransferase (ALT/SGPT) 14 U/L (14-59) Alkaline Phosphatase 46 U/L (46-116) Total Protein 6.7 g/dL (6.4-8.2) Albumin 3.3 g/dL (3.4-5.0) Albumin/Globulin Ratio 1.0 (1.0-1.7) Images Images ABDOMEN LTD US: Multiple sonographic images of the right lower quadrant are submitted. Interpretation is made without the benefit of real-time exam. There is a tubular structure in the right lower quadrant. If this does indeed represent the appendix, this does not significantly compress, caliber considered dilated about 1 cm if this is indeed the appendix. No free fluid is demonstrated. Impression: 1. There is a tubular structure in the right lower quadrant which may be noncompressible, dilated appendix which may be seen with acute appendicitis in the appropriate clinical setting. Multiple transabdominal sonographic images of the pelvis are submitted. There is single intrauterine gestational sac and fetus, demonstrable ca rdiac activity 145 bpm. Gestational sac morphology is within normal limits. There is identifiable pole. [place]-rump length measurement of 5.97 cm corresponds with 12 weeks 3 days. Adjusted ultrasound age is 12 weeks 3 days with estimated delivery date of 06/22/2020. LMP age is 12 weeks 6 days with estimated delivery date of 06/19/2020. Uterus measured 14.5 x 9.7 x 10.6 cm. Placenta and anatomy are not well visualized at this age of the . Amniotic fluid volume is within normal limits. No free fluid is demonstrated. Right ovary measured 4 x 2.3 x 4.6 cm, normal low resistance vascularity. There is a hypoechoic focus of the right ovary up to 1.8 x 1.5 x 1.3 cm. Left ovary could not be visualized. Impression: 1. There is a single viable intrauterine , adjusted ultrasound age 12 weeks 3 days with estimated delivery date by ultrasound 06/22/2020. 2. There is small cyst or dominant follicle of the right ovary, no free fluid. VTE Prophylaxis Ordered VTE Prophylaxis Devices: No VTE Pharmacological Prophylaxi: No Assessment/Plan Assessment/Plan A/P: Acute right lower quadrant pain - suspicious for appendicitis on US, however, afebrile, no leukocytosis and history of chronic abdominal pain make accurate diagnosis difficult. Zosyn. Consult Surg. 1st trimester - 13 weeks with reassuring US. garnishment specialist contacted Vaginal bleeding - scant Chronic pelvic pain - previously diagnosed as PCOS and endometriosis per patient Anxiety - patient reassured. Will consult psychiatry Smoker - quit smoking upon discovering her , counseled on the importance of continued cessation FEN - Clear liquid diet, npo after midnight PPX - SCDs, low dvt risk FULL CODE Dispo - inpatient Justifications for Admission Other Justification GWEN PORRAS MD Dec 12, 2019 18:02
[2019-12-12 18:15] VITALS: BP 141/98
[2019-12-12] MEDS: PIPERACILLIN/TAZOBACTAM 3.375 GM in IV NORMAL SALINE 50ML 50 ML IV SCH ×2 (19:00→22:41)
--- NOTE | 2019-12-12 19:30 | NUR ---
The patient, JASON JAIME, 24 y/o, F admitted by GWEN PORRAS MD, was given written information regarding hospital policies, unit procedures and contact persons. Patient admitted to room 460 at 1815 per report. Patient alert and oriented x 4. Patient oriented to room, bed, call light and POC. See admission assessment/documentation. Valuables were checked and documented, Patient states she left purse at home.
[2019-12-12] MEDS: BUTORPHANOL 2 MG/ML VIAL. IV PRN (20:23)
--- NOTE | 2019-12-12 21:24 | NUR ---
Note from ED doctor read and note from Dr. Goins to not give antibiotics found. Page to Dr. Goins for Clarification. Call returned from Dr. Goins and order to hold antibiotics and make Patient NPO p MN, order for repeat CBC in am.
[2019-12-12 23:00] VITALS: BP 97/52
[2019-12-13] MEDS: ONDANSETRON PF 4 MG/2 ML VIAL. IV PRN ×2 (00:22→08:14)
[2019-12-13] MEDS: BUTORPHANOL 2 MG/ML VIAL. IV PRN ×3 (00:28→14:13)
[2019-12-13 03:00] VITALS: BP 97/57
[2019-12-13 06:34] VITALS: BP 102/55
--- NOTE | 2019-12-13 07:23 | NUR ---
Consult to DR. Castaneda called, message left with Larissa at service who stated she would consult doctor.
--- NOTE | 2019-12-13 07:25 | NUR ---
Call to screen room operator to place page to Dr. Martinez at cell number [phone]. Message left on answering machine.
--- NOTE | 2019-12-13 08:42 | PDOC2 ---
CONSULT Date of Consult Date of Consult DATE: 12/13/19 TIME: 08:39 Reason for Consult Reason for Consult: Right lower quadrant abdominal pain Referring Physician Referring Physician: Theodora Identification/Chief Complaint Chief Complaint Right lower quadrant abdominal pain Source Source: Chart review, Patient History of Present Illness Reason for Visit: 24-year-old female who is 12 weeks came to the emergency department as requested by her SEA CAPTAIN for lower abdominal pain she mostly describes in the right lower quadrant she states it is achy in nature has becoming more unrelenting over the last 24 hours she also states she has had some nausea and vomiting. She has been seen both at [facility] and [facility] for abdominal pain in her . She states she has had endometriosis in the past started age 13 which is led to chronic abdominal pain. She states this feels different than that pain she is quite tearful Past Medical History Cardiovascular: No pertinent hx Past Surgical History Past Surgical History: Cholecystectomy, Tonsillectomy Family History Family History: No Significant, Hypertension Social History Quit ALCOHOL: none Drugs: None Current Problem List Problem List Problems Medical Problems: (1) Acute appendicitis affecting Status: Acute Current Medications Current Medications Current Medications Sodium Chloride 1,000 ml @ 1,000 mls/hr Q1H IV Last administered on 12/12/19at 14:32; Start 12/12/19 at 13:53; Stop 12/12/19 at 14:52; Status DC Acetaminophen (Tylenol) 1,000 mg 1X ONCE PO Last administered on 12/12/19at 14:32; Start 12/12/19 at 14:30; Stop 12/12/19 at 14:31; Status DC Ondansetron HCl (Zofran) 4 mg PRN Q8HRS PRN IV NAUSEA/VOMITING; Start 12/12/19 at 17:00; Stop 12/12/19 at 18:37; Status DC Acetaminophen (Tylenol) 650 mg PRN Q4HRS PRN PO FEVER > 100.3'F; Start 12/12/19 at 17:00 Ondansetron HCl (Zofran) 4 mg PRN Q4HRS PRN IV NAUSEA/VOMITING Last administered on 12/13/19at 08:14; Start 12/12/19 at 18:45 Butorphanol Tartrate (Stadol) 2 mg PRN Q4HRS PRN IV PAIN Last administered on 12/13/19at 08:15; Start 12/12/19 at 18:45 Piperacillin Sod/ Tazobactam Sod 3.375 gm/Sodium Chloride 50 ml @ 100 mls/hr Q6HRS IV ; Start 12/12/19 at 19:00 Active Scripts Active Reported No Known Medications Prior To Admisstion (Info) Each 1 Each 1X Allergies Allergies: Coded Allergies: cephalexin (Verified Allergy, Unknown, 11/15/19) ROS Gastrointestinal: Yes Nausea, Yes Vomiting, Yes Abdominal Pain Physical Exam General: Alert, Oriented X3, Cooperative, moderate distress Lungs: Clear to auscultation, Normal air movement Heart: Regular rate, No murmurs Abdomen: Normal bowel sounds, Soft, Other (Tender to palpation across the lower abdomen from right lower quadrant to the mid pelvis) Skin: No significant lesion Neuro: Normal speech Psych/Mental Status: Mental status NL Vitals VITALS Vital Signs Date Time Temp Pulse Resp B/P (MAP) Pulse Ox O2 Delivery O2 Flow Rate FiO2 12/13/19 08:15 Room Air 12/13/19 06:34 98.4 53 18 102/55 (71) 94 98.4 Labs Labs Laboratory Tests Test 12/12/19 14:15 12/12/19 18:15 White Blood Count 9.7 x10^3/uL (4.0-11.0) Red Blood Count 4.68 x10^6/uL (3.50-5.40) Hemoglobin 14.1 g/dL (12.0-15.5) Hematocrit 41.1 % (36.0-47.0) Mean Corpuscular Volume 88 fL (79-100) Mean Corpuscular Hemoglobin 30 pg (25-35) Mean Corpuscular Hemoglobin Concent 34 g/dL (31-37) Red Cell Distribution Width 12.7 % (11.5-14.5) Platelet Count 244 x10^3/uL (140-400) Neutrophils (%) (Auto) 67 % (31-73) Lymphocytes (%) (Auto) 26 % (24-48) Monocytes (%) (Auto) 5 % (0-9) Eosinophils (%) (Auto) 1 % (0-3) Basophils (%) (Auto) 0 % (0-3) Neutrophils # (Auto) 6.5 x10^3/uL (1.8-7.7) Lymphocytes # (Auto) 2.5 x10^3/uL (1.0-4.8) Monocytes # (Auto) 0.5 x10^3/uL (0.0-1.1) Eosinophils # (Auto) 0.1 x10^3/uL (0.0-0.7) Basophils # (Auto) 0.0 x10^3/uL (0.0-0.2) Prothrombin Time 12.5 SEC (11.7-14.0) Prothromb Time International Ratio 1.0 (0.8-1.1) Urine Collection Type Unknown Urine Color Yellow Urine Clarity Clear Urine pH 7.0 (<5.0-8.0) Urine Specific [place] 1.015 (1.000-1.030) Urine Protein Negative mg/dL (NEG-TRACE) Urine Glucose (UA) Negative mg/dL (NEG) Urine Ketones (Stick) Negative mg/dL (NEG) Urine Blood Negative (NEG) Urine Nitrite Negative (NEG) Urine Bilirubin Negative (NEG) Urine Urobilinogen Dipstick 0.2 mg/dL (0.2 mg/dL) Urine Leukocyte Esterase Negative (NEG) Urine RBC 0 /HPF (0-2) Urine WBC Occ /HPF (0-4) Urine Squamous Epithelial Cells Few /LPF Urine Bacteria Few /HPF (0-FEW) Maternal Serum HCG Beta Subunit 85537 mIU/mL (0-5) Sodium Level 137 mmol/L (136-145) Potassium Level 3.8 mmol/L (3.5-5.1) Chloride Level 104 mmol/L (98-107) Carbon Dioxide Level 24 mmol/L (21-32) Anion Gap 9 (6-14) Blood Urea Nitrogen 7 mg/dL (7-20) Creatinine 0.5 mg/dL (0.6-1.0) Estimated GFR (Cockcroft-Gault) 151.6 BUN/Creatinine Ratio 14 (6-20) Glucose Level 82 mg/dL (70-99) Calcium Level 8.9 mg/dL (8.5-10.1) Total Bilirubin 0.3 mg/dL (0.2-1.0) Aspartate Amino Transf (AST/SGOT) 12 U/L (15-37) Alanine Aminotransferase (ALT/SGPT) 14 U/L (14-59) Alkaline Phosphatase 46 U/L (46-116) Total Protein 6.7 g/dL (6.4-8.2) Albumin 3.3 g/dL (3.4-5.0) Albumin/Globulin Ratio 1.0 (1.0-1.7) SARS-CoV-2 Antigen (Rapid) Negative (NEGATIVE) Laboratory Tests Test 12/12/19 14:15 12/12/19 18:15 White Blood Count 9.7 x10^3/uL (4.0-11.0) Red Blood Count 4.68 x10^6/uL (3.50-5.40) Hemoglobin 14.1 g/dL (12.0-15.5) Hematocrit 41.1 % (36.0-47.0) Mean Corpuscular Volume 88 fL (79-100) Mean Corpuscular Hemoglobin 30 pg (25-35) Mean Corpuscular Hemoglobin Concent 34 g/dL (31-37) Red Cell Distribution Width 12.7 % (11.5-14.5) Platelet Count 244 x10^3/uL (140-400) Neutrophils (%) (Auto) 67 % (31-73) Lymphocytes (%) (Auto) 26 % (24-48) Monocytes (%) (Auto) 5 % (0-9) Eosinophils (%) (Auto) 1 % (0-3) Basophils (%) (Auto) 0 % (0-3) Neutrophils # (Auto) 6.5 x10^3/uL (1.8-7.7) Lymphocytes # (Auto) 2.5 x10^3/uL (1.0-4.8) Monocytes # (Auto) 0.5 x10^3/uL (0.0-1.1) Eosinophils # (Auto) 0.1 x10^3/uL (0.0-0.7) Basophils # (Auto) 0.0 x10^3/uL (0.0-0.2) Prothrombin Time 12.5 SEC (11.7-14.0) Prothromb Time International Ratio 1.0 (0.8-1.1) Urine Collection Type Unknown Urine Color Yellow Urine Clarity Clear Urine pH 7.0 (<5.0-8.0) Urine Specific [place] 1.015 (1.000-1.030) Urine Protein Negative mg/dL (NEG-TRACE) Urine Glucose (UA) Negative mg/dL (NEG) Urine Ketones (Stick) Negative mg/dL (NEG) Urine Blood Negative (NEG) Urine Nitrite Negative (NEG) Urine Bilirubin Negative (NEG) Urine Urobilinogen Dipstick 0.2 mg/dL (0.2 mg/dL) Urine Leukocyte Esterase Negative (NEG) Urine RBC 0 /HPF (0-2) Urine WBC Occ /HPF (0-4) Urine Squamous Epithelial Cells Few /LPF Urine Bacteria Few /HPF (0-FEW) Maternal Serum HCG Beta Subunit 33193 mIU/mL (0-5) Sodium Level 137 mmol/L (136-145) Potassium Level 3.8 mmol/L (3.5-5.1) Chloride Level 104 mmol/L (98-107) Carbon Dioxide Level 24 mmol/L (21-32) Anion Gap 9 (6-14) Blood Urea Nitrogen 7 mg/dL (7-20) Creatinine 0.5 mg/dL (0.6-1.0) Estimated GFR (Cockcroft-Gault) 151.6 BUN/Creatinine Ratio 14 (6-20) Glucose Level 82 mg/dL (70-99) Calcium Level 8.9 mg/dL (8.5-10.1) Total Bilirubin 0.3 mg/dL (0.2-1.0) Aspartate Amino Transf (AST/SGOT) 12 U/L (15-37) Alanine Aminotransferase (ALT/SGPT) 14 U/L (14-59) Alkaline Phosphatase 46 U/L (46-116) Total Protein 6.7 g/dL (6.4-8.2) Albumin 3.3 g/dL (3.4-5.0) Albumin/Globulin Ratio 1.0 (1.0-1.7) SARS-CoV-2 Antigen (Rapid) Negative (NEGATIVE) Images Images Abdominal ultrasound shows tubular structure in the right lower quadrant noncompressible does not show any free fluid, vaginal ultrasound shows right ovarian cyst again no free fluid Assessment/Plan Assessment/Plan Right lower quadrant abdominal pain. Afebrile no leukocytosis. Patient was admitted overnight for observation again this morning she is afebrile awaiting CBC results. Plan MRI for further evaluation FELIPA HERNANDEZ MD Dec 13, 2019 08:42
--- NOTE | 2019-12-13 08:42 | PDOC2 ---
CONSULT Date of Consult Date of Consult DATE: 12/13/19 TIME: 08:38 Reason for Consult Reason for Consult: possible appendicitis Referring Physician Referring Physician: ER Identification/Chief Complaint Chief Complaint RLQ pain Source Source: Chart review, Patient History of Present Illness Reason for Visit: Reports acute onset of RLQ pain yesterday after painful intercourse. The pain is constant and severe, during exam, crying, very distraught and anxious.. + nausea, no emesis. There is some hx of chronic abdominal pain, however pt reports this is a different pain Past Medical History Cardiovascular: No pertinent hx Past Surgical History Past Surgical History: Cholecystectomy, Tonsillectomy Family History Family History: Hypertension Social History Quit ALCOHOL: none Drugs: None Current Problem List Problem List Problems Medical Problems: (1) Acute appendicitis affecting Status: Acute Current Medications Current Medications Current Medications Sodium Chloride 1,000 ml @ 1,000 mls/hr Q1H IV Last administered on 12/12/19at 14:32; Start 12/12/19 at 13:53; Stop 12/12/19 at 14:52; Status DC Acetaminophen (Tylenol) 1,000 mg 1X ONCE PO Last administered on 12/12/19at 14:32; Start 12/12/19 at 14:30; Stop 12/12/19 at 14:31; Status DC Ondansetron HCl (Zofran) 4 mg PRN Q8HRS PRN IV NAUSEA/VOMITING; Start 12/12/19 at 17:00; Stop 12/12/19 at 18:37; Status DC Acetaminophen (Tylenol) 650 mg PRN Q4HRS PRN PO FEVER > 100.3'F; Start 12/12/19 at 17:00 Ondansetron HCl (Zofran) 4 mg PRN Q4HRS PRN IV NAUSEA/VOMITING Last administered on 12/13/19at 08:14; Start 12/12/19 at 18:45 Butorphanol Tartrate (Stadol) 2 mg PRN Q4HRS PRN IV PAIN Last administered on 12/13/19at 08:15; Start 12/12/19 at 18:45 Piperacillin Sod/ Tazobactam Sod 3.375 gm/Sodium Chloride 50 ml @ 100 mls/hr Q6HRS IV ; Start 12/12/19 at 19:00 Active Scripts Active Reported No Known Medications Prior To Admisstion (Info) Each 1 Each MC 1X Allergies Allergies: Coded Allergies: cephalexin (Verified Allergy, Unknown, 11/15/19) ROS General: No: Chills, Other (fevers ) PSYCHOLOGICAL ROS: YES: Anxiety; No: Depression Eyes: No Blurry vision, No Double vision HEENT: No: Heacaches, Sinus pain Hematological and Lymphatic: No: Bleeding Problems, Blood Clots Respiratory: No: Cough, Shortness of breath Cardiovascular: No Chest Pain, No Palpitations Gastrointestinal: Yes Other (see hpi) Genitourinary: No Dysuria, No Retention Musculoskeletal: No Joint Pain, No Muscle Pain Neurological: No Impaired Coord/balance, No Numbness/Tingling Skin: No Pruritus, No Rash Physical Exam General: Alert, Oriented X3, Cooperative, Other (anxious) HEENT: Atraumatic, PERRLA Lungs: Clear to auscultation, Normal air movement Heart: Regular rate, Normal S1, Normal S2 Abdomen: Soft, Other (TTP RLQ, no guarding ) Extremities: No clubbing, No cyanosis Skin: No rashes, No breakdown Neuro: Normal gait, Normal speech Psych/Mental Status: Mental status NL, Mood NL MUSCULOSKELETAL: No deformity, No swelling Vitals VITALS Vital Signs Date Time Temp Pulse Resp B/P (MAP) Pulse Ox O2 Delivery O2 Flow Rate FiO2 12/13/19 08:15 Room Air 12/13/19 06:34 98.4 53 18 102/55 (71) 94 98.4 Labs Labs Laboratory Tests Test 12/12/19 14:15 12/12/19 18:15 White Blood Count 9.7 x10^3/uL (4.0-11.0) Red Blood Count 4.68 x10^6/uL (3.50-5.40) Hemoglobin 14.1 g/dL (12.0-15.5) Hematocrit 41.1 % (36.0-47.0) Mean Corpuscular Volume 88 fL (79-100) Mean Corpuscular Hemoglobin 30 pg (25-35) Mean Corpuscular Hemoglobin Concent 34 g/dL (31-37) Red Cell Distribution Width 12.7 % (11.5-14.5) Platelet Count 244 x10^3/uL (140-400) Neutrophils (%) (Auto) 67 % (31-73) Lymphocytes (%) (Auto) 26 % (24-48) Monocytes (%) (Auto) 5 % (0-9) Eosinophils (%) (Auto) 1 % (0-3) Basophils (%) (Auto) 0 % (0-3) Neutrophils # (Auto) 6.5 x10^3/uL (1.8-7.7) Lymphocytes # (Auto) 2.5 x10^3/uL (1.0-4.8) Monocytes # (Auto) 0.5 x10^3/uL (0.0-1.1) Eosinophils # (Auto) 0.1 x10^3/uL (0.0-0.7) Basophils # (Auto) 0.0 x10^3/uL (0.0-0.2) Prothrombin Time 12.5 SEC (11.7-14.0) Prothromb Time International Ratio 1.0 (0.8-1.1) Urine Collection Type Unknown Urine Color Yellow Urine Clarity Clear Urine pH 7.0 (<5.0-8.0) Urine Specific [place] 1.015 (1.000-1.030) Urine Protein Negative mg/dL (NEG-TRACE) Urine Glucose (UA) Negative mg/dL (NEG) Urine Ketones (Stick) Negative mg/dL (NEG) Urine Blood Negative (NEG) Urine Nitrite Negative (NEG) Urine Bilirubin Negative (NEG) Urine Urobilinogen Dipstick 0.2 mg/dL (0.2 mg/dL) Urine Leukocyte Esterase Negative (NEG) Urine RBC 0 /HPF (0-2) Urine WBC Occ /HPF (0-4) Urine Squamous Epithelial Cells Few /LPF Urine Bacteria Few /HPF (0-FEW) Maternal Serum HCG Beta Subunit 89849 mIU/mL (0-5) Sodium Level 137 mmol/L (136-145) Potassium Level 3.8 mmol/L (3.5-5.1) Chloride Level 104 mmol/L (98-107) Carbon Dioxide Level 24 mmol/L (21-32) Anion Gap 9 (6-14) Blood Urea Nitrogen 7 mg/dL (7-20) Creatinine 0.5 mg/dL (0.6-1.0) Estimated GFR (Cockcroft-Gault) 151.6 BUN/Creatinine Ratio 14 (6-20) Glucose Level 82 mg/dL (70-99) Calcium Level 8.9 mg/dL (8.5-10.1) Total Bilirubin 0.3 mg/dL (0.2-1.0) Aspartate Amino Transf (AST/SGOT) 12 U/L (15-37) Alanine Aminotransferase (ALT/SGPT) 14 U/L (14-59) Alkaline Phosphatase 46 U/L (46-116) Total Protein 6.7 g/dL (6.4-8.2) Albumin 3.3 g/dL (3.4-5.0) Albumin/Globulin Ratio 1.0 (1.0-1.7) SARS-CoV-2 Antigen (Rapid) Negative (NEGATIVE) Laboratory Tests Test 12/12/19 14:15 12/12/19 18:15 White Blood Count 9.7 x10^3/uL (4.0-11.0) Red Blood Count 4.68 x10^6/uL (3.50-5.40) Hemoglobin 14.1 g/dL (12.0-15.5) Hematocrit 41.1 % (36.0-47.0) Mean Corpuscular Volume 88 fL (79-100) Mean Corpuscular Hemoglobin 30 pg (25-35) Mean Corpuscular Hemoglobin Concent 34 g/dL (31-37) Red Cell Distribution Width 12.7 % (11.5-14.5) Platelet Count 244 x10^3/uL (140-400) Neutrophils (%) (Auto) 67 % (31-73) Lymphocytes (%) (Auto) 26 % (24-48) Monocytes (%) (Auto) 5 % (0-9) Eosinophils (%) (Auto) 1 % (0-3) Basophils (%) (Auto) 0 % (0-3) Neutrophils # (Auto) 6.5 x10^3/uL (1.8-7.7) Lymphocytes # (Auto) 2.5 x10^3/uL (1.0-4.8) Monocytes # (Auto) 0.5 x10^3/uL (0.0-1.1) Eosinophils # (Auto) 0.1 x10^3/uL (0.0-0.7) Basophils # (Auto) 0.0 x10^3/uL (0.0-0.2) Prothrombin Time 12.5 SEC (11.7-14.0) Prothromb Time International Ratio 1.0 (0.8-1.1) Urine Collection Type Unknown Urine Color Yellow Urine Clarity Clear Urine pH 7.0 (<5.0-8.0) Urine Specific [place] 1.015 (1.000-1.030) Urine Protein Negative mg/dL (NEG-TRACE) Urine Glucose (UA) Negative mg/dL (NEG) Urine Ketones (Stick) Negative mg/dL (NEG) Urine Blood Negative (NEG) Urine Nitrite Negative (NEG) Urine Bilirubin Negative (NEG) Urine Urobilinogen Dipstick 0.2 mg/dL (0.2 mg/dL) Urine Leukocyte Esterase Negative (NEG) Urine RBC 0 /HPF (0-2) Urine WBC Occ /HPF (0-4) Urine Squamous Epithelial Cells Few /LPF Urine Bacteria Few /HPF (0-FEW) Maternal Serum HCG Beta Subunit 30488 mIU/mL (0-5) Sodium Level 137 mmol/L (136-145) Potassium Level 3.8 mmol/L (3.5-5.1) Chloride Level 104 mmol/L (98-107) Carbon Dioxide Level 24 mmol/L (21-32) Anion Gap 9 (6-14) Blood Urea Nitrogen 7 mg/dL (7-20) Creatinine 0.5 mg/dL (0.6-1.0) Estimated GFR (Cockcroft-Gault) 151.6 BUN/Creatinine Ratio 14 (6-20) Glucose Level 82 mg/dL (70-99) Calcium Level 8.9 mg/dL (8.5-10.1) Total Bilirubin 0.3 mg/dL (0.2-1.0) Aspartate Amino Transf (AST/SGOT) 12 U/L (15-37) Alanine Aminotransferase (ALT/SGPT) 14 U/L (14-59) Alkaline Phosphatase 46 U/L (46-116) Total Protein 6.7 g/dL (6.4-8.2) Albumin 3.3 g/dL (3.4-5.0) Albumin/Globulin Ratio 1.0 (1.0-1.7) SARS-CoV-2 Antigen (Rapid) Negative (NEGATIVE) Assessment/Plan Assessment/Plan abdominal pain WBC normal, todays is pending, will check MRI abdomen YUNG THOMPSON APRN Dec 13, 2019 08:42
[2019-12-13] MEDS ORDERED: IV NORMAL SALINE 1000ML BAG 1,000 ML IV SCH (08:45)
[2019-12-13 09:09] LABS: BASO % 0 % (0-3); EOS # 0.1 x10^3/uL (0.0-0.7); EOS % 0 % (0-3); HEMATOCRIT 39.6 % (36.0-47.0); HEMOGLOBIN 13.8 g/dL (12.0-15.5); LYMPH % 23 % (24-48); MEAN CORPUSCULAR HEMOGLOBIN 31 pg (25-35); MEAN CORPUSCULAR HGB CONC 35 g/dL (31-37); MEAN CORPUSCULAR VOLUME 88 fL (79-100); MONO # 0.6 x10^3/uL (0.0-1.1); MONO % 5 % (0-9); NEUT # 9.1 x10^3/uL (1.8-7.7); NEUT % 71 % (31-73); PLATELET COUNT 271 x10^3/uL (140-400); RED BLOOD COUNT 4.48 x10^6/uL (3.50-5.40); RED CELL DISTRIBUTION WIDTH 12.9 % (11.5-14.5); WHITE BLOOD COUNT 12.8 x10^3/uL (4.0-11.0)
[2019-12-13 11:13] VITALS: BP 125/71
--- NOTE | 2019-12-13 11:47 | PDOC ---
[employer] PROGRESS NOTE Date of Service DOS: DATE: 12/13/19 TIME: 11:40 Chief Complaint Chief Complaint Right sided abdominal pain Anxiety, PCOS History of Present Illness History of Present Illness 12/13/2019 Patient seen and examined in room Patient started on clear liquids DW family members DW RN DW adult protective caseworker Vitals/I&O Vitals/I&O: Vital Signs Date Time Temp Pulse Resp B/P (MAP) Pulse Ox O2 Delivery O2 Flow Rate FiO2 12/13/19 11:13 99.1 62 18 125/71 (89) 100 Room Air 99.1 I & O 12/12/19 12/12/19 12/13/19 14:59 22:59 06:59 Intake Total 1000 ml Balance 1000 ml Physical Exam General: Alert, Oriented X3, Cooperative, moderate distress Heart: Regular rate, No murmurs Abdomen: Normal bowel sounds, Soft, Other (Tender to palpation across the lower abdomen from right lower quadrant to the mid pelvis) Extremities: No clubbing, No cyanosis Skin: No significant lesion Labs Labs: Laboratory Tests Test 12/12/19 14:15 12/12/19 18:15 12/13/19 08:15 White Blood Count 9.7 x10^3/uL (4.0-11.0) 12.8 x10^3/uL (4.0-11.0) Red Blood Count 4.68 x10^6/uL (3.50-5.40) 4.48 x10^6/uL (3.50-5.40) Hemoglobin 14.1 g/dL (12.0-15.5) 13.8 g/dL (12.0-15.5) Hematocrit 41.1 % (36.0-47.0) 39.6 % (36.0-47.0) Mean Corpuscular Volume 88 fL (79-100) 88 fL (79-100) Mean Corpuscular Hemoglobin 30 pg (25-35) 31 pg (25-35) Mean Corpuscular Hemoglobin Concent 34 g/dL (31-37) 35 g/dL (31-37) Red Cell Distribution Width 12.7 % (11.5-14.5) 12.9 % (11.5-14.5) Platelet Count 244 x10^3/uL (140-400) 271 x10^3/uL (140-400) Neutrophils (%) (Auto) 67 % (31-73) 71 % (31-73) Lymphocytes (%) (Auto) 26 % (24-48) 23 % (24-48) Monocytes (%) (Auto) 5 % (0-9) 5 % (0-9) Eosinophils (%) (Auto) 1 % (0-3) 0 % (0-3) Basophils (%) (Auto) 0 % (0-3) 0 % (0-3) Neutrophils # (Auto) 6.5 x10^3/uL (1.8-7.7) 9.1 x10^3/uL (1.8-7.7) Lymphocytes # (Auto) 2.5 x10^3/uL (1.0-4.8) 3.0 x10^3/uL (1.0-4.8) Monocytes # (Auto) 0.5 x10^3/uL (0.0-1.1) 0.6 x10^3/uL (0.0-1.1) Eosinophils # (Auto) 0.1 x10^3/uL (0.0-0.7) 0.1 x10^3/uL (0.0-0.7) Basophils # (Auto) 0.0 x10^3/uL (0.0-0.2) 0.0 x10^3/uL (0.0-0.2) Prothrombin Time 12.5 SEC (11.7-14.0) Prothromb Time International Ratio 1.0 (0.8-1.1) Urine Collection Type Unknown Urine Color Yellow Urine Clarity Clear Urine pH 7.0 (<5.0-8.0) Urine Specific [place] 1.015 (1.000-1.030) Urine Protein Negative mg/dL (NEG-TRACE) Urine Glucose (UA) Negative mg/dL (NEG) Urine Ketones (Stick) Negative mg/dL (NEG) Urine Blood Negative (NEG) Urine Nitrite Negative (NEG) Urine Bilirubin Negative (NEG) Urine Urobilinogen Dipstick 0.2 mg/dL (0.2 mg/dL) Urine Leukocyte Esterase Negative (NEG) Urine RBC 0 /HPF (0-2) Urine WBC Occ /HPF (0-4) Urine Squamous Epithelial Cells Few /LPF Urine Bacteria Few /HPF (0-FEW) Maternal Serum HCG Beta Subunit 79882 mIU/mL (0-5) Sodium Level 137 mmol/L (136-145) Potassium Level 3.8 mmol/L (3.5-5.1) Chloride Level 104 mmol/L (98-107) Carbon Dioxide Level 24 mmol/L (21-32) Anion Gap 9 (6-14) Blood Urea Nitrogen 7 mg/dL (7-20) Creatinine 0.5 mg/dL (0.6-1.0) Estimated GFR (Cockcroft-Gault) 151.6 BUN/Creatinine Ratio 14 (6-20) Glucose Level 82 mg/dL (70-99) Calcium Level 8.9 mg/dL (8.5-10.1) Total Bilirubin 0.3 mg/dL (0.2-1.0) Aspartate Amino Transf (AST/SGOT) 12 U/L (15-37) Alanine Aminotransferase (ALT/SGPT) 14 U/L (14-59) Alkaline Phosphatase 46 U/L (46-116) Total Protein 6.7 g/dL (6.4-8.2) Albumin 3.3 g/dL (3.4-5.0) Albumin/Globulin Ratio 1.0 (1.0-1.7) SARS-CoV-2 Antigen (Rapid) Negative (NEGATIVE) Review of Systems Review of Systems: NO dizziness NO N/V Assessment and Plan Assessmemt and Plan Problems Medical Problems: (1) Acute appendicitis affecting Status: Acute Plan: 1) Start on clear liquids 2) Waiting surgery input 3) DVT prophylaxis 4) Continue Pain meds 5) Continue IV fluids 6) Full code Comment Review of Relevant I have reviewed the following items susi (where applicable) has been applied. Medications: Current Medications Medications (Trade) Dose Ordered Sig/Aleta Route PRN Reason Start Time Stop Time Status Last Admin Dose Admin Sodium Chloride 1,000 ml @ 1,000 mls/hr Q1H IV 12/12/19 13:53 12/12/19 14:52 DC 12/12/19 14:32 Acetaminophen (Tylenol) 1,000 mg 1X ONCE PO 12/12/19 14:30 12/12/19 14:31 DC 12/12/19 14:32 Ondansetron HCl (Zofran) 4 mg PRN Q4HRS PRN IV NAUSEA/VOMITING 12/12/19 18:45 12/13/19 08:14 Butorphanol Tartrate (Stadol) 2 mg PRN Q4HRS PRN IV PAIN 12/12/19 18:45 12/13/19 08:15 Sodium Chloride 1,000 ml @ 75 mls/hr [id number] IV 12/13/19 08:45 12/13/19 08:45 Justifications for Admission Other Justification CHARLES AGUAYO III DO Dec 13, 2019 11:47
[2019-12-13] MEDS: PIPERACILLIN/TAZOBACTAM 3.375 GM in IV NORMAL SALINE 50ML 50 ML IV SCH (12:00)
--- NOTE | 2019-12-13 12:49 | NUR ---
Farshad held per MD order until testing completed
--- NOTE | 2019-12-13 12:53 | RAD ---
MRI pelvis without IV contrast INDICATION: Right lower quadrant abdominal pain in . Question appendicitis. COMPARISON: Right lower quadrant abdominal ultrasound of 12/12/2019 TECHNIQUE: Multiplanar multisequence MR imaging of the pelvis was performed without IV contrast and reviewed in axial and coronal planes. Sequences acquired on a 1.5 Britni system included axial T2, axial fat-sat T2, coronal SSFP and coronal fat-sat T2. FINDINGS: The terminal ileum is identified (ileocecal valve on axial image 8 of series 4, coronal image 18 of series 8) and below that, the appendix from its orifice through its tip (on axial T2 image 11 through 17 of series 4) shows no abnormal distention or periappendiceal soft tissue stranding or fluid. No fluid collection or adenopathy is identified. Single intrauterine gestation in transverse lie (head to maternal left) is incidentally noted with anterior placenta. Dominant right ovarian follicle measuring 1.6 cm and trace free fluid. The rest of exam is unremarkable. IMPRESSION: The tubular structure identified on ultrasound most likely represents a loop of small bowel, possibly the terminal ileum. MRI shows no evidence of acute appendicitis and no evidence of a phlegmon or pelvic abscess. There are no specific findings to explain patient's right lower quadrant abdominal pain. Recommend correlation with the clinical findings. Electronically signed by: Brian Hernadez MD (12/13/2019 12:50 PM) [id number]
[2019-12-13 15:10] VITALS: BP 121/70
--- NOTE | 2019-12-13 15:25 | NUR ---
Called [phone] Mccartney about the consult. She stated spoke with ER physician last night. Dr. Castaneda stated that she informed him for the patient to follow up with previous VEGETABLE VENDOR physician at [facility] in [place].
--- NOTE | 2019-12-13 15:33 | PDOC ---
Provider Note Date of Service: DATE: 12/13/19 TIME: 15:33 Provider Note Reviewed MRI results with patient and her mother and significant other. MRI does not show any inflammation signs or symptoms consistent with acute appendicitis. Defer further treatment to REFRACTORY GRINDER OPERATOR Justifications for Admission Other Justification FELIPA HERNANDEZ MD Dec 13, 2019 15:33
--- NOTE | 2019-12-13 16:15 | NUR ---
Pt insisting in seeing BEARING MACHINE OPERATOR physician. Spoke with Dr. Mccartney. State she will see patient this evening.
--- NOTE | 2019-12-13 18:50 | NUR ---
Dr. Coe gave orders to discharge. MRI negative for appendicitis. To follow up with PRODUCT TEST SPECIALIST and Primary doctor in 1 week.
[2019-12-13] MEDS ORDERED: AMOX500C PO (18:56)
--- NOTE | 2019-12-13 19:15 | NUR ---
Discharge instructions given with prescription. Answered questions and concerns. Verbalized understanding. Pt discharged home accompanied by mother, and boyfriend.
--- NOTE | 2019-12-13 19:45 | PDOC1 ---
History & Psych Evaluation Date of Service: DOS: DATE: 12/13/19 TIME: 19:44 Source: Source: Caregiver, Chart review, Patient Identification: Identification She is a 24-year-old female with first trimester of struggling with severe anxiety. Chief Complaint: Chief Complaint Severe anxiety and pain History of Present Illness: HPI: She is a 24-year-old female with prior history of anxiety, polycystic ovarian syndrome, endometriosis initially admitted with right lower quadrant pain. Upon abdominal ultrasound she was found to have viable intrauterine pregn shaquille likely she is at end of first trimester. She is seen for initial psychiatric assessment reportedly having severe anxiety and crying spells. Upon interview, she appears extremely anxious, jittery, nervous, and having crying spells. Reportedly having mixed feelings of happiness that she was told previously that she would never be and extreme nervousness caring and worried about her pain and baby. States, she does not know what is going on with her she has extreme pelvic pain, however, reason is not known. Imaging studies are negative for any pathology. Initially she was suspected of having appendicitis which has been ruled out by surgeon. She is afraid that, her constant pain would interfere with the care of baby and she will be able to take care of her baby properly. Additionally, she appears worried about anticipatory anxiety that it is only first trimester and with time baby will grow up and she could come across more problems particularly pain might get worse. As she has previous history of depression which has been treated in the past and anxiety. Presently, she is off of medications for a while. Aside from that she denies any suicidal or homicidal thoughts, auditory or visual hallucinations. No evidence of aubrey or hypomania. She is determined to have baby and reporting substantial support also endorsed by her home her mother and father of the baby who were at the patient's bedside. Past Psychiatric History: Previously diagnosed and treated for depression and anxiety. Denies history of psychiatric hospital admissions. Denies history of suicidal attempt, suicidal ideation or nonsuicidal self- injurious behavior. Past Medical History: Cholecystectomy, Tonsillectomy Family History: Denies family history of depression or anxiety. Denies family history of suicidality. Social History: Social History: She lives with her significant other. 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 Presently she is unemployed. She is an ex-smoker. Denies history of alcohol abuse or illicit substance use. Denies history of legal issues. Current Medications: Current Medications Current Medications Medications (Trade) Dose Ordered Sig/Aleta Start Time Stop Time Status Last Admin Dose Admin Acetaminophen (Tylenol) 650 mg PRN Q4HRS PRN 12/12/19 17:00 12/13/19 19:36 DC Butorphanol Tartrate (Stadol) 2 mg PRN Q4HRS PRN 12/12/19 18:45 12/13/19 19:36 DC 12/13/19 14:13 2 MG Ondansetron HCl (Zofran) 4 mg PRN Q4HRS PRN 12/12/19 18:45 12/13/19 19:36 DC 12/13/19 08:14 4 MG Piperacillin Sod/ Tazobactam Sod 3.375 gm/Sodium Chloride 50 ml @ 100 mls/hr Q6HRS 12/12/19 19:00 12/13/19 19:36 DC Sodium Chloride 1,000 ml @ 75 mls/hr [id number] 12/13/19 08:45 12/13/19 19:36 DC 12/13/19 08:45 75 MLS/HR Allergies: Allergies: Coded Allergies: cephalexin (Verified Allergy, Unknown, 11/15/19) Mental Status Examination: Mental Status Examination females appears her stated age Cooperative and interactive however very anxious Alert and oriented Thought processes coherent and goal-directed Denies suicidal or homicidal thoughts. Denies auditory or visual hallucinations No evidence of abnormal perception. Mood is anxious Affect is labile. Insight is good Judgment is good Impulse control is good Attention span and concentration good Recent and remote memory intact. ROS: 14 point review of system is otherwise negative except for what is stated above. Physical Exam: Refer to Physician's note. LACQUER MIXER: No focal deficit MSK: No EPS, TDK, or abnormal involuntary movements Vitals: Vitals Vital Signs Date Time Temp Pulse Resp B/P (MAP) Pulse Ox O2 Delivery O2 Flow Rate FiO2 12/13/19 15:10 98.7 60 18 121/70 (87) 100 Room Air 98.7 Labs: Labs Laboratory Tests Test 12/12/19 14:15 12/12/19 18:15 12/13/19 08:15 White Blood Count 9.7 x10^3/uL (4.0-11.0) 12.8 x10^3/uL (4.0-11.0) Red Blood Count 4.68 x10^6/uL (3.50-5.40) 4.48 x10^6/uL (3.50-5.40) Hemoglobin 14.1 g/dL (12.0-15.5) 13.8 g/dL (12.0-15.5) Hematocrit 41.1 % (36.0-47.0) 39.6 % (36.0-47.0) Mean Corpuscular Volume 88 fL (79-100) 88 fL (79-100) Mean Corpuscular Hemoglobin 30 pg (25-35) 31 pg (25-35) Mean Corpuscular Hemoglobin Concent 34 g/dL (31-37) 35 g/dL (31-37) Red Cell Distribution Width 12.7 % (11.5-14.5) 12.9 % (11.5-14.5) Platelet Count 244 x10^3/uL (140-400) 271 x10^3/uL (140-400) Neutrophils (%) (Auto) 67 % (31-73) 71 % (31-73) Lymphocytes (%) (Auto) 26 % (24-48) 23 % (24-48) Monocytes (%) (Auto) 5 % (0-9) 5 % (0-9) Eosinophils (%) (Auto) 1 % (0-3) 0 % (0-3) Basophils (%) (Auto) 0 % (0-3) 0 % (0-3) Neutrophils # (Auto) 6.5 x10^3/uL (1.8-7.7) 9.1 x10^3/uL (1.8-7.7) Lymphocytes # (Auto) 2.5 x10^3/uL (1.0-4.8) 3.0 x10^3/uL (1.0-4.8) Monocytes # (Auto) 0.5 x10^3/uL (0.0-1.1) 0.6 x10^3/uL (0.0-1.1) Eosinophils # (Auto) 0.1 x10^3/uL (0.0-0.7) 0.1 x10^3/uL (0.0-0.7) Basophils # (Auto) 0.0 x10^3/uL (0.0-0.2) 0.0 x10^3/uL (0.0-0.2) Prothrombin Time 12.5 SEC (11.7-14.0) Prothromb Time International Ratio 1.0 (0.8-1.1) Urine Collection Type Unknown Urine Color Yellow Urine Clarity Clear Urine pH 7.0 (<5.0-8.0) Urine Specific [place] 1.015 (1.000-1.030) Urine Protein Negative mg/dL (NEG-TRACE) Urine Glucose (UA) Negative mg/dL (NEG) Urine Ketones (Stick) Negative mg/dL (NEG) Urine Blood Negative (NEG) Urine Nitrite Negative (NEG) Urine Bilirubin Negative (NEG) Urine Urobilinogen Dipstick 0.2 mg/dL (0.2 mg/dL) Urine Leukocyte Esterase Negative (NEG) Urine RBC 0 /HPF (0-2) Urine WBC Occ /HPF (0-4) Urine Squamous Epithelial Cells Few /LPF Urine Bacteria Few /HPF (0-FEW) Maternal Serum HCG Beta Subunit 49986 mIU/mL (0-5) Sodium Level 137 mmol/L (136-145) Potassium Level 3.8 mmol/L (3.5-5.1) Chloride Level 104 mmol/L (98-107) Carbon Dioxide Level 24 mmol/L (21-32) Anion Gap 9 (6-14) Blood Urea Nitrogen 7 mg/dL (7-20) Creatinine 0.5 mg/dL (0.6-1.0) Estimated GFR (Cockcroft-Gault) 151.6 BUN/Creatinine Ratio 14 (6-20) Glucose Level 82 mg/dL (70-99) Calcium Level 8.9 mg/dL (8.5-10.1) Total Bilirubin 0.3 mg/dL (0.2-1.0) Aspartate Amino Transf (AST/SGOT) 12 U/L (15-37) Alanine Aminotransferase (ALT/SGPT) 14 U/L (14-59) Alkaline Phosphatase 46 U/L (46-116) Total Protein 6.7 g/dL (6.4-8.2) Albumin 3.3 g/dL (3.4-5.0) Albumin/Globulin Ratio 1.0 (1.0-1.7) Coronavirus (PCR) Not detected (Not Detected) SARS-CoV-2 Antigen (Rapid) Negative (NEGATIVE) Laboratory Tests Test 12/13/19 08:15 White Blood Count 12.8 x10^3/uL (4.0-11.0) Red Blood Count 4.48 x10^6/uL (3.50-5.40) Hemoglobin 13.8 g/dL (12.0-15.5) Hematocrit 39.6 % (36.0-47.0) Mean Corpuscular Volume 88 fL (79-100) Mean Corpuscular Hemoglobin 31 pg (25-35) Mean Corpuscular Hemoglobin Concent 35 g/dL (31-37) Red Cell Distribution Width 12.9 % (11.5-14.5) Platelet Count 271 x10^3/uL (140-400) Neutrophils (%) (Auto) 71 % (31-73) Lymphocytes (%) (Auto) 23 % (24-48) Monocytes (%) (Auto) 5 % (0-9) Eosinophils (%) (Auto) 0 % (0-3) Basophils (%) (Auto) 0 % (0-3) Neutrophils # (Auto) 9.1 x10^3/uL (1.8-7.7) Lymphocytes # (Auto) 3.0 x10^3/uL (1.0-4.8) Monocytes # (Auto) 0.6 x10^3/uL (0.0-1.1) Eosinophils # (Auto) 0.1 x10^3/uL (0.0-0.7) Basophils # (Auto) 0.0 x10^3/uL (0.0-0.2) Diagnosis: Diagnosis: 1generalized anxiety disorder 2rule out adjustment disorder with anxious distress Assessment: female with history of generalized anxiety disorder and depression, presently struggling with anxiety flare. Her anxiety is related to her pain, wellbeing of the baby, interference of pain with baby's care in future, and uncertainty. Cognitive distortions are interplaying with her anxiety flare. Discussed in detail, reassurance and supportive psychotherapy provided. She is in agreement not to use any psychotropics during as she is extra cautious about safety. She is in agreement to restart CBT for her anxiety or intensive outpatient/partial hospital program for intensive therapy. Plan: She is not in imminent danger to self or others. Psychoeducation provided Supportive psychotherapy provided. Insight oriented psychotherapy provided. She is in agreement to restart CBT for anxiety or if covered by insurance int ensive outpatient program/partial hospital program. BAUTISTA LONG MD Dec 13, 2019 19:45
--- NOTE | 2019-12-13 21:22 | CONS ---
DATE OF CONSULTATION: 12/13/2019 HISTORY OF PRESENT ILLNESS: This patient is a 24-year-old white female who is a primigravida, first trimester , came into the Emergency Room at the hospital with a history of right lower quadrant pain and the patient was seen by ER physician and admitted to the hospital to rule out appendicitis. There is no history of nausea and vomiting at the time of admission. No history of any vaginal bleeding. The patient has been seen by general surgeon and apparently does not require any surgery at this time. She still has some pain in the right lower quadrant. PHYSICAL EXAMINATION: VITAL SIGNS: Stable. ABDOMEN: Feels soft. A small amount of tenderness in the right lower quadrant. OBSTETRIC AND GYNECOLOGIC: Uterus feels normal and the left lower quadrant is also normal at this time. No vaginal bleeding noted. Her pelvic sonogram shows 12 weeks 3 days and small cyst in the right ovary as well and apart from that, no other problems were seen at this time. The patient is quite anxious because she has been after trying for for a while. She is on vitamins and she has OB doctor at [facility] [place], [place]. RECOMMENDATION: Would be encourage more fluids, vitamins and since she has still some amount of tenderness, we could give her some ampicillin 500 mg one 4 times a day for 1 week to subside any peritoneal inflammation at this time. IMPRESSION: First trimester with abdominal pain, possible ruptured corpus luteum cyst of the ovary. The patient is to be dismissed and can be seen by her OB doctor. She is advised bed rest along with ampicillin at this time. Thank you for giving me the opportunity to participate in the care and management of this patient. LACEY MÉNDEZ MD DR: OLIVIA/tejal JOB#: [id number] / [id number]
== END 2019-12-13 19:15 | disposition home or self-care (01) | DRG 832 ==
LOC: ER 13:27 → 4 SOUTHEST 17:00
PROVIDERS: ADMIT Internal Medicine; ATTEND Internal Medicine
DX: O99.611 Diseases of the digestive system complicating pregnancy, first trimester (principal); K35.80 Unspecified acute appendicitis; Z3A.12 12 weeks gestation of pregnancy; Z90.49 Acquired absence of other specified parts of digestive tract; Z20.828 Contact with and (suspected) exposure to other viral communicable diseases; Z87.891 Personal history of nicotine dependence; O99.341 Other mental disorders complicating pregnancy, first trimester; F41.9 Anxiety disorder, unspecified; Z82.49 Family history of ischemic heart disease and other diseases of the circulatory system; Z88.1 Allergy status to other antibiotic agents; O26.891 Other specified pregnancy related conditions, first trimester; G89.29 Other chronic pain
CPT/HCPCS: 36415; 74181; 76705; 76801; 80053; 81001; 84702; 85025; 85610; 87426; 96360; 99285; J0595; J2405; J7030; G0378; U0003-CS

== ENCOUNTER 2020-04-14 03:12 | Observation (INO) | payer MEDICAID ==
[~2020-04-14 03:12] MED LIST: AMOX500C PO
[2020-04-14] MEDS ORDERED: ONDANSETRON PF 4 MG/2 ML VIAL. IVP PRN ×2 (03:30→04:00)
[2020-04-14] MEDS ORDERED: 0.9 % SODIUM CHLORIDE 10 ML DISP.SYRIN. IV PRN (03:30)
[2020-04-14] MEDS ORDERED: IV RINGERS,LACTATED 1000ML 1,000 ML IV SCH (04:00)
[2020-04-14] MEDS ORDERED: MAG HYDROX/ALUMINUM HYD/SIMETH 30 ML ORAL.SUSP PO PRN (05:45)
[2020-04-14 06:15] LABS: BILIRUBIN,URINE NEGATIVE (NEG); CLARITY,URINE CLEAR; COLOR,URINE YELLOW; NITRITE,URINE NEGATIVE (NEG); PROTEIN,URINE NEGATIVE (NEG-TRACE); UROBILINOGEN,URINE 0.2 mg/dL (0.2 mg/dL)
[2020-04-14 06:21] LABS: AMPHETAMINE/METHAMPHETAMINE NEG (NEG); BARBITURATES NEG (NEG); BENZODIAZEPINES NEG (NEG); CANNABINOIDS POS (NEG); COCAINE NEG (NEG); METHADONE NEG (NEG); OPIATES NEG (NEG); PHENCYCLIDINE NEG (NEG)
[2020-04-14 06:50] LABS: HYALINE CASTS, URINE FEW /HPF
[2020-04-14 06:52] LABS: BACTERIA,URINE FEW /HPF (0-FEW); RBC,URINE OCC /HPF (0-2)
[2020-04-14] MEDS: ONDANSETRON PF 4 MG/2 ML VIAL. IVP PRN ×3 (08:00→22:09)
--- NOTE | 2020-04-14 10:40 | PDOC ---
GENERAL General: 24 yrs old lady EDC 03.26.21. has severe Nausea Vomiting after eating some Food. No Fever. Has Abdomial Pain. No Vaginal Bleeding. ALLERGIES Allergies: Allergies Coded Allergies Type Severity Reaction Last Updated Verified cephalexin Allergy Intermediate 04/14/20 Yes MEDS Medications: Current Medications Medications (Trade) Dose Ordered Sig/Aleta Route PRN Reason Start Time Stop Time Status Last Admin Dose Admin Ringer's Solution 1,000 ml @ 1,000 mls/hr Q1H IV 04/14/20 04:00 04/14/20 04:59 DC 04/14/20 09:39 Ondansetron HCl (Zofran) 4 mg PRN Q6HRS PRN IVP NAUSEA/VOMITING 04/14/20 04:00 04/14/20 07:43 DC 04/14/20 04:16 Al Hydroxide/Mg Hydroxide (Mylanta Plus Xs) 30 ml PRN Q2HR PRN PO HEARTBURN / GAS 04/14/20 05:45 04/14/20 05:57 Ondansetron HCl (Zofran) 4 mg PRN Q4HRS PRN IVP NAUSEA/VOMITING 04/14/20 07:45 04/14/20 08:00 LAB Lab: Laboratory Tests Test 04/14/20 04:07 04/14/20 05:35 SARS-CoV-2 Antigen (Rapid) Negative (NEGATIVE) Urine Collection Type Unknown Urine Color Yellow Urine Clarity Clear Urine pH 6.0 (<5.0-8.0) Urine Specific [place] 1.025 (1.000-1.030) Urine Protein Negative mg/dL (NEG-TRACE) Urine Glucose (UA) Negative mg/dL (NEG) Urine Ketones (Stick) >=80 mg/dL (NEG) Urine Blood Negative (NEG) Urine Nitrite Negative (NEG) Urine Bilirubin Negative (NEG) Urine Urobilinogen Dipstick 0.2 mg/dL (0.2 mg/dL) Urine Leukocyte Esterase Negative (NEG) Urine RBC Occ /HPF (0-2) Urine WBC 1-4 /HPF (0-4) Urine Squamous Epithelial Cells Few /LPF Urine Bacteria Few /HPF (0-FEW) Urine Hyaline Casts Few /HPF Urine Mucus Slight /LPF Urine Opiates Screen Neg (NEG) Urine Methadone Screen Neg (NEG) Urine Barbiturates Neg (NEG) Urine Phencyclidine Screen Neg (NEG) Urine Amphetamine/Methamphetamine Neg (NEG) Urine Benzodiazepines Screen Neg (NEG) Urine Cocaine Screen Neg (NEG) Urine Cannabinoids Screen Pos (NEG) Urine Ethyl Alcohol Neg (NEG) ASSESSMENT & PLAN A&P Vital signs stable. Abdomen Soft. Patient looks Miserable with Nausea and Vomiting. Will give her IV Fluids IV Zofran and IM Vistaril. NPO for now for 24 hours. Justifications for Admission Other Justification LACEY MÉNDEZ MD Apr 14, 2020 10:40
[2020-04-14] MEDS: hydrOXYzine IM 50 MG/ML VIAL IM PRN ×2 (10:47→22:09)
--- NOTE | 2020-04-14 11:56 | HP ---
ADMIT DATE: 04/14/2020 CHIEF COMPLAINT AND HISTORY OF PRESENT ILLNESS: This patient is a 24-year-old white female who is a 1, para 0, EDC 06/14, has been admitted to the hospital because she came in with excessive nausea and vomiting after eating some food and she is miserable at this time and not able to eat or drink water. PHYSICAL EXAMINATION: VITAL SIGNS: Being stable. GENERAL: The patient is a kind of not feeling well and not able to drink or eat. ABDOMEN: Feels soft and she has had a sonogram she was 24 weeks and she is able to feel the movements. The heart tones are good. No history of any vaginal bleeding. PELVIC: Shows cervical os is closed and the patient not in labor. EXTREMITIES: No edema of feet. DIAGNOSIS: Primigravida hyperemesis, possible food poisoning. PLAN: Admission, IV fluids. We will keep her n.p.o. for 24 hours and further observation and treatment. LACEY MÉNDEZ MD DR: OLIVIA/tejal JOB#: [id number] / [id number]
[2020-04-14] MEDS: IV RINGERS,LACTATED 1000ML 1,000 ML IV SCH ×2 (13:24→22:09)
== END 2020-04-15 08:25 | disposition home or self-care (01) ==
LOC: 3 SO LND 03:12
PROVIDERS: ADMIT Obstetrics & Gynecology; ATTEND Obstetrics & Gynecology
DX: O21.2 Late vomiting of pregnancy (principal); Z20.828 Contact with and (suspected) exposure to other viral communicable diseases; Z3A.26 26 weeks gestation of pregnancy; Z79.899 Other long term (current) drug therapy
CPT/HCPCS: 80307; 81001; 87426; 96361; 96372; 96374; 96376; G0378; G0379; J2405; J3410; J7120; U0003

== ENCOUNTER 2020-10-26 08:10 | Emergency (ER) | payer MEDICAID ==
[~2020-10-26] VITALS: Ht 180.3 cm; Wt 113.6 kg
[2020-10-26] MEDS ORDERED: ONDANSETRON PF 4 MG/2 ML VIAL. IVP ONE (10:00)
[2020-10-26] MEDS ORDERED: IV NORMAL SALINE 1000ML BAG 1,000 ML IV ONE (10:00)
[2020-10-26 10:22] LABS: BILIRUBIN,URINE NEGATIVE (NEG); CLARITY,URINE CLOUDY; NITRITE,URINE NEGATIVE (NEG); PH,URINE 6.5 (<5.0-8.0); PROTEIN,URINE 30 mg/dL (NEG-TRACE)
[2020-10-26 10:33] LABS: BACTERIA,URINE MANY /HPF (0-FEW); COLOR,URINE YELLOW
[2020-10-26 10:35] LABS: RBC,URINE OCC /HPF (0-2)
--- NOTE | 2020-10-26 10:41 | PHYS DOC ---
Past Medical History Past Medical History: Endometriosis, Ovarian Cyst Additional Past Medical Histor: PCOS and Endometriosis, TBI Past Surgical History: Cholecystectomy, Tonsillectomy Smoking Status: Never Smoker Alcohol Use: Rarely General Adult EDM: Chief Complaint: NAUSEA/VOMITING/DIARRHEA HPI: HPI: Patient is a 25 year old female presents to the emergency department reporting she was out in the sun all day this past Monday and became sunburned, that evening she started experience nausea and vomiting, reporting being unable to eat or drink anything without vomiting right away, denies seeing any blood in her vomitus, reports her vomitus is yellow in color. Patient reports pain to the sunburn skin area, denies abdominal cramping, vaginal discharge, increased urinary frequency, urinary pressure or urinary pain. Denies any rashes in her vaginal area, denies any STI concerns, denies chest pain or shortness of breath. Denies nasal or chest congestion. Denies recent fever or chills. Reports she is 4 months , had her child on 17 June. Has not had a menstrual cycle since. Patient reports she could be . Patient reports she is breast-feeding and has had decreased milk production today, has, to the emergency department for evaluation. Patient reports a past surgical history of gallbladder removal in 2019, tonsils and adenoid removal when she was 9 years old. Denies take any prescription medications at home. Reports a allergy to ciprofloxacin. States she completed the COVID-19 virus vaccination series in August 2020,moderna brand. Denies any other physical complaints or physical concerns. Patient denies smoking cigarettes, states she did drink alcohol over the weekend but only drinks on occasion, denies illicit drug use or marijuana use. Review of Systems: Review of Systems: 14 body systems of review of systems have been reviewed. See HPI for pertinent positives and negative responses, otherwise all other systems are negative, nonpertinent or noncontributory. Constitutional: Negative except as outlined in HPI above. Skin: Negative except as outlined in HPI above. Eyes: Negative except as outlined in HPI above. HENT: Negative except as outlined in HPI above. Respiratory: Negative except as outlined in HPI above. Cardiovascular: Negative except as outlined in HPI above. GI: Negative except as outlined in HPI above. : Negative except as outlined in HPI above. Musculoskeletal: Negative except as outlined in HPI above. Integument: Negative except as outlined in HPI above. Neurologic: Negative except as outlined in HPI above. Endocrine: Negative except as outlined in HPI above. Lymphatic: Negative except as outlined in HPI above. Psychiatric: Negative except as outlined in HPI above. Heart Score: C/O Chest Pain: No Risk Factors: Risk Factors: DM, Current or recent (<one month) smoker, HTN, HLP, family histo ry of CAD, obesity. Risk Scores: Score 0 - 3: 2.5% MACE over next 6 weeks - Discharge Home Score 4 - 6: 20.3% MACE over next 6 weeks - Admit for Clinical Observation Score 7 - 10: 72.7% MACE over next 6 weeks - Early Invasive Strategies Current Medications: Current Medications Medications (Trade) Dose Ordered Sig/Aleta Start Time Stop Time Status Last Admin Dose Admin Ondansetron HCl (Zofran) 4 mg 1X ONCE 10/26/20 10:00 10/26/20 10:01 DC Sodium Chloride 1,000 ml @ 1,000 mls/hr 1X ONCE 10/26/20 10:00 10/26/20 10:59 Allergies: Allergies: Allergies Coded Allergies Type Severity Reaction Last Updated Verified cephalexin Allergy Intermediate 04/14/20 Yes Physical Exam: PE: Constitutional: Well developed, well nourished, patient tearful, appears uncomfortable, non-toxic appearance. HENT: Normocephalic, atraumatic. Oral mucosa moist, bilateral TMs within normal limits, no lymphadenopathy of the head or neck, no drooling, no trismus, bryce pharynx moist, pink, not erythematous, no laryngeal edema. Patient speaking in normal voice tones. Eyes: Conjunctiva normal, no discharge. Neck: Normal range of motion, no stridor. No nuchal rigidity, no meningeal signs. Cardiovascular: No cyanosis appreciated, distal cap refill less than 2 seconds. Lungs & Thorax: Patient is in no respiratory distress, no audible adventitious lung sounds appreciated. Abdomen: Nontender, no abnormalities noted. Skin: Warm, dry, no erythema, no rash. First-degree sunburn skin to abdomen approximately 5 cm wide, across abdomen extending around bilateral flanks, no sunburn skin on back, first-degree sunburn skin to bilateral forearms, bilateral anterior thighs, no blistering, no skin breakdown, no infectious process, no induration appreciated. Patient complains of pain to palpation on sunburn areas. Back: No tenderness, no deformities. Extremities: No tenderness, no cyanosis, no clubbing, ROM intact, no edema. Neurologic: Alert and oriented X 3, normal motor function, normal sensory function, no focal deficits noted. Psychologic: Affect normal, judgement normal, mood normal. Current Patient Data: Labs: Laboratory Tests Test 10/26/20 09:40 10/26/20 09:52 10/26/20 10:30 10/26/20 11:45 Urine Collection Type Void Urine Color Yellow Urine Clarity Cloudy Urine pH 6.5 Urine Specific [place] 1.025 Urine Protein 30 mg/dL Urine Glucose (UA) Negative mg/dL Urine Ketones (Stick) Trace mg/dL Urine Blood Negative Urine Nitrite Negative Urine Bilirubin Negative Urine Urobilinogen Dipstick 1.0 mg/dL Urine Leukocyte Esterase Small Urine RBC Occ /HPF Urine WBC 1-4 /HPF Urine Squamous Epithelial Cells Many /LPF Urine Bacteria Many /HPF Urine Mucus Marked /LPF Urine Opiates Screen Neg Urine Methadone Screen Neg Urine Barbiturates Neg Urine Phencyclidine Screen Neg Urine Amphetamine/Methamphetamine Neg Urine Benzodiazepines Screen Neg Urine Cocaine Screen Neg Urine Cannabinoids Screen Pos Urine Ethyl Alcohol Neg Bedside Urine HCG, Qualitative Hcg negative White Blood Count 14.9 x10^3/uL Red Blood Count 5.48 x10^6/uL Hemoglobin 15.5 g/dL Hematocrit 45.7 % Mean Corpuscular Volume 83 fL Mean Corpuscular Hemoglobin 28 pg Mean Corpuscular Hemoglobin Concent 34 g/dL Red Cell Distribution Width 14.7 % Platelet Count 474 x10^3/uL Neutrophils (%) (Auto) 68 % Lymphocytes (%) (Auto) 24 % Monocytes (%) (Auto) 7 % Eosinophils (%) (Auto) 0 % Basophils (%) (Auto) 1 % Neutrophils # (Auto) 10.2 x10^3/uL Lymphocytes # (Auto) 3.6 x10^3/uL Monocytes # (Auto) 1.0 x10^3/uL Eosinophils # (Auto) 0.0 x10^3/uL Basophils # (Auto) 0.1 x10^3/uL Sodium Level 138 mmol/L Potassium Level 3.9 mmol/L Chloride Level 100 mmol/L Carbon Dioxide Level 30 mmol/L Anion Gap 8 Blood Urea Nitrogen 14 mg/dL Creatinine 1.0 mg/dL Estimated GFR (Cockcroft-Gault) 67.6 BUN/Creatinine Ratio 14 Glucose Level 116 mg/dL Calcium Level 9.9 mg/dL Total Bilirubin 0.5 mg/dL Aspartate Amino Transf (AST/SGOT) 22 U/L Alanine Aminotransferase (ALT/SGPT) 31 U/L Alkaline Phosphatase 94 U/L Creatine Kinase 147 U/L Troponin I Quantitative < 0.017 ng/mL Total Protein 8.2 g/dL Albumin 4.3 g/dL Albumin/Globulin Ratio 1.1 Lipase 58 U/L SARS-CoV-2 RNA (JULIAN) Negative SARS-CoV-2 Antigen (Rapid) Negative Current Medications Medications (Trade) Dose Ordered Sig/Aleta Route PRN Reason Start Time Stop Time Status Last Admin Dose Admin Sodium Chloride 1,000 ml @ 1,000 mls/hr 1X ONCE IV 10/26/20 10:00 10/26/20 10:59 DC 10/26/20 10:47 Ondansetron HCl (Zofran) 4 mg 1X ONCE IVP 10/26/20 10:00 10/26/20 10:01 DC 10/26/20 10:46 Laboratory Tests Test 10/26/20 09:52 POC Urine HCG, Qualitative Hcg negative (Negative) Vital Signs: Vital Signs Date Time Temp Pulse Resp B/P (MAP) Pulse Ox O2 Delivery O2 Flow Rate FiO2 10/26/20 09:30 98.9 85 22 121/86 98 Room Air 98.9 EKG: EKG: EKG performed at 1131 by ED nursing staff shows a sinus bradycardia with an occasional PAC, heart rate 50 bpm, [place] interval 0.106, QTc interval 0.449, no acute STEMI, no ACS, no acute ischemia appreciated, EKG interpreted by ED attending physician Dr. Zamora. Radiology/Procedures: Radiology/Procedures: [] Course & Med Decision Making: Course & Med Decision Making Pertinent Labs and Imaging studies reviewed. (See chart for details) 25-year-old female, vital signs reviewed, presents to the emergency department concerning sunburn with nausea and vomiting. Physical examination consistent with first-degree sunburn approximately 5% body surface area, bilious vomiting. Will order serum labs, urinalysis assay, urine test, urine drug screen to rule out possible marijuana induced vomiting. 1 L normal saline Patient's POC test negative, will order p.o. Tylenol and Motrin along with IV ondansetron. Patient is amenable with this plan. Patient is anxious in appearance, writhing in bed saying that she is very naus eated and feels like she is going to vomit, patient heart rate is only 50 bpm, does not fit patient complaint or presentation, will order EKG to rule out cardiac process versus suspected attention seeking component. Patient's urine drug screen came back positive for marijuana, patient states that she does not believe marijuana could cause her vomiting. States she became upset and states she wanted to leave. Patient is hemodynamically stable, does have an elevated white count most likely related to vomiting, discussed with patient will give Zofran prescription at discharge. Patient is amenable to this plan. Patient continues to deny smoking marijuana. Will diagnosed with cyclic vomiting syndrome Thank you for visiting our Emergency Department. It was a pleasure taking care of you today in the emergency department and we appreciate you trusting us with your care. If any additional problems come up don't hesitate to return to visit us. Please follow up with your primary care provider so they can plan additional care if needed and know about the problem that you had. If symptoms worsen come back to the Emergency Department. Any concerning symptoms that start such as chest pain, shortness of air, weakness or numbness on one side of the body, running high fevers or any other concerning symptoms return to the ER. Elise Disclaimer: Elise Disclaimer: This electronic medical record was generated, in whole or in part, using a voice recognition dictation system. Departure Departure Impression: Primary Impression: Cyclic vomiting syndrome Additional Impression: Marijuana abuse Disposition: 01 HOME / SELF CARE / HOMELESS Condition: GOOD Referrals: UNKNOWN PCP NAME (PCP) Additional Instructions: You were seen today in the emergency department for nausea vomiting for the past 3 days. You were treated in the ER today with an IV of normal saline and Zofran for nausea. You have stated that you need to go home right away. I have discussed with you that I will prescribe oral Zofran for nausea, please continue to drink plenty of fluids, return to the emergency department for worsening symptoms or other concerns. Follow-up with your doctor soon. You may continue to breast-feed your infant child is normal. Thank you for visiting our Emergency Department. It was a pleasure taking care of you today in the e mergency department and we appreciate you trusting us with your care. If any additional problems come up don't hesitate to return to visit us. Please follow up with your primary care provider so they can plan additional care if needed and know about the problem that you had. If symptoms worsen come back to the Emergency Department. Any concerning symptoms that start such as chest pain, shortness of air, weakness or numbness on one side of the body, running high fevers or any other concerning symptoms return to the ER. .EMERGENCY DEPARTMENT GENERAL DISCHARGE INSTRUCTIONS Thank you for coming to [facility] (ED) today and trusting us with you care. We trust that you had a positive experience in our Emergency Department. If you wish to speak to the department management, you may call the Director at [phone]. YOUR FOLLOW UP INSTRUCTIONS ARE FOLLOWS: 1. Do you have a private Doctor? If you do not have a private doctor, please ask for a resource list of physicians or clinics that may be able to assist you with follow up care. 2. The Emergency Physicain has interpreted your x-rays. The X-Ray specialist will also review them. If there is a change in the findings, you will be notified in 48 hours when at all possible. 3. A lab test or culture has been done, your results will be reviewed and you will be notified if you need a change in treatment. ADDITIONAL INSTRUCTIONS AND INFORMATION: 1. Your care today has been supervised by a physician who is specially trained in emergency care. Many problems require more than one evaluation for a complete diagnosis and treatment. We recommend that you schedule your follow up appointment as recommended to ensure complete treatment of you illness or injury. If you are unable to obtain follow up care and continue to have a problem, or if your condition worsens, we recommend that you return to the ED. 2. We are not able to safely determine your condition over the phone nor are we able to give sound medical advice over the phone. For these safety reasons, if you call for medical advice we will ask you to come to the ED for further evaluation. 3. If you have any questions regarding these discharge instructions please call the ED at [phone]. SAFETY INFORMATION: In the interest of safety, wellness, and injury prevention; we encourage you to wear your sealbelt, if you smoke; quite smoking, and we encourage family to use a protective helmet for bicycling and other sporting events that present an increased risk for head injury. IF YOUR SYMPTOMS WORSEN OR NEW SYMPTOMS DEVELOP, OR YOU HAVE CONCERNS ABOUT YOUR CONDITION; OR IF YOUR CONDITION WORSENS WHILE YOU ARE WAITING FOR YOUR FOLLOW UP APPOINTMENT; EITHER CONTACT YOUR PRIMARY CARE DOCTOR, THE PHYSICIAN WHOSE NAME AND NUMBER YOU WERE GIVEN, OR RETURN TO THE ED IMMEDIATELY. Scripts Ondansetron (ONDANSETRON ODT) 4 Mg Tab.rapdis 1 TAB PO PRN Q6-8HRS for nausea, #16 TAB 0 Refills Prov: NITA OROZCO APRN 10/26/20 NITA OROZCO APRN Oct 26, 2020 10:41
[2020-10-26 10:52] LABS: BASO # 0.1 x10^3/uL (0.0-0.2); BASO % 1 % (0-3); EOS % 0 % (0-3); HEMATOCRIT 45.7 % (36.0-47.0); HEMOGLOBIN 15.5 g/dL (12.0-15.5); LYMPH # 3.6 x10^3/uL (1.0-4.8); LYMPH % 24 % (24-48); MEAN CORPUSCULAR HEMOGLOBIN 28 pg (25-35); MEAN CORPUSCULAR HGB CONC 34 g/dL (31-37); MEAN CORPUSCULAR VOLUME 83 fL (79-100); MONO % 7 % (0-9); NEUT # 10.2 x10^3/uL (1.8-7.7); NEUT % 68 % (31-73); PLATELET COUNT 474 x10^3/uL (140-400); RED BLOOD COUNT 5.48 x10^6/uL (3.50-5.40); RED CELL DISTRIBUTION WIDTH 14.7 % (11.5-14.5); WHITE BLOOD COUNT 14.9 x10^3/uL (4.0-11.0)
[2020-10-26 10:57] LABS: BARBITURATES NEG (NEG); BENZODIAZEPINES NEG (NEG); CANNABINOIDS POS (NEG); COCAINE NEG (NEG); METHADONE NEG (NEG); OPIATES NEG (NEG); PHENCYCLIDINE NEG (NEG)
[2020-10-26 10:57] LABS: CALCIUM 9.9 mg/dL (8.5-10.1); GFR 67.6; POTASSIUM 3.9 mmol/L (3.5-5.1)
[2020-10-26 10:58] LABS: AMPHETAMINE/METHAMPHETAMINE NEG (NEG)
[2020-10-26 11:04] LABS: ALBUMIN 4.3 g/dL (3.4-5.0); ALBUMIN/GLOBULIN RATIO 1.1 (1.0-1.7); TOTAL BILIRUBIN 0.5 mg/dL (0.2-1.0); TOTAL PROTEIN 8.2 g/dL (6.4-8.2)
[2020-10-26 11:44] VITALS: BP 142/76
--- NOTE | 2020-10-26 12:24 | EKG ---
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
[2020-10-26] MEDS ORDERED: ONDA4TAB12 PO (12:56)
== END 2020-10-26 13:00 | disposition home or self-care (01) ==
LOC: ER 08:10
DX: R11.15 Cyclical vomiting syndrome unrelated to migraine (principal); Z20.822 Contact with and (suspected) exposure to COVID-19; F12.10 Cannabis abuse, uncomplicated; Z87.820 Personal history of traumatic brain injury; Z90.49 Acquired absence of other specified parts of digestive tract; Z88.1 Allergy status to other antibiotic agents
CPT/HCPCS: 36415; 80053; 80307; 81001; 81025; 82550; 83690; 84484; 85025; 87086; 87426; 93005; 96361; 96374; 99284; J2405; J7030; U0003; U0005

== ENCOUNTER 2020-12-30 22:09 | Emergency (ER) | payer BC, MEDICAID ==
[~2020-12-30 22:09] MED LIST changes: +ONDA4TAB12 PO
--- NOTE | 2020-12-30 22:40 | PHYS DOC ---
Past Medical History Past Medical History: Endometriosis, Ovarian Cyst Additional Past Medical Histor: PCOS and Endometriosis, TBI (BRIAN FLORES [employer] SERVICE ATTENDANT) Past Surgical History: Cholecystectomy, Tonsillectomy (BRIAN FLORES [employer] ATTENDANT) Smoking Status: Never Smoker Alcohol Use: Rarely (BRIAN FLORES [employer] ATTENDANT) General Adult EDM: Chief Complaint: ANIMAL BITE HPI: HPI: Patient is a 25 year old female who presents to the ED today to be evaluated after being bitten by a stray dog. Patient has multiple bites to bilateral hands and forearms. Tetanus is up-to-date. (LUIS ANGELBRIAN Campuzano [employer] SERVICE ATTENDANT) Review of Systems: Review of Systems: Constitutional: Denies fever or chills. [] Integument: Dog bites to bilateral upper extremities Neurologic: Denies headache, focal weakness or sensory changes. [] [] Psychiatric: Denies depression or anxiety. [] (BRIAN FLORES [employer] SERVICE ATTENDANT) Heart Score: C/O Chest Pain: N/A Risk Factors: Risk Factors: DM, Current or recent (<one month) smoker, HTN, HLP, family hist ory of CAD, obesity. Risk Scores: Score 0 - 3: 2.5% MACE over next 6 weeks - Discharge Home Score 4 - 6: 20.3% MACE over next 6 weeks - Admit for Clinical Observation Score 7 - 10: 72.7% MACE over next 6 weeks - Early Invasive Strategies (BRIAN FLORES [employer]ICE ATTENDANT) Allergies: Allergies: Allergies Coded Allergies Type Severity Reaction Last Updated Verified cephalexin Allergy Intermediate 04/14/20 Yes (BRIAN FLORES [employer] ATTENDANT) Physical Exam: PE: Constitutional: Well developed, well nourished, no acute distress, non-toxic appearance. [] Skin: Left biceps noted for puncture wound, left ventral forearm noted for another puncture wound. Bruising also noted on the left ventral forearm. Left thumb proximal end noted for another puncture wound, left palm also noted for another puncture wound. Left middle finger proximal end noted for 2 puncture wounds. None of these need suturing. Full range of motion to the left upper extremity including hands and fingers. Adequate radial, medial, ulnar sensation to the left upper extremity. Distal end of the right middle finger also noted for dog bite laceration roughly 2 cm on the ventral aspect of the finger. There is a puncture wound also noted on the right middle finger nailbed. Adequate radial, medial, ulnar sensation to the right hand. +2 right radial pulse. Cap refill less than 2 seconds to right fingers Back: No tenderness, no CVA tenderness. [] Extremities: No tenderness, no cyanosis, no clubbing, ROM intact, no edema. [] Neurologic: Alert and oriented X 3, normal motor function, normal sensory function, no focal deficits noted. [] Psychologic: Affect normal, judgement normal, mood normal. [] (BRIAN FLORES APRN) EKG: EKG: [] (BRIAN FLORES APRN) Radiology/Procedures: Radiology/Procedures: []PROCEDURE: HAND BILAT 3V Three-view bilateral hand dated 12/30/2020. No comparison available. Clinical data indication: Dog bites. Pain. FINDINGS: 3 views of bilateral hand show normal bony alignment. There is a small nondisplaced fracture of the distal tuft of the long finger on the right. Overlying soft tissue swelling and soft tissue gas. Osseous structures are otherwise intact. No radiopaque foreign body. IMPRESSION: 1. Nondisplaced fracture of the distal tuft of right long finger. 2. No acute bony abnormality on the left. Electronically signed by: Clinton Santos MD (12/30/2020 11:20 PM) [facility] [place] DICTATED and SIGNED BY: CLINTON SANTOS MD DATE: 12/30/20 [id number] Laceration/Wound Repair Wound Location: Right middle finger Wound's Depth, Shape: Horizontal Wound Length (cm): Approximately 3 cm Wound Explored: clean Irrigated w/ Saline (ccs): 500 Betadine Prep?: Yes Anesthesia: 1% of buffered lidocaine Volume Anesthetic (ccs): 4 cc Wound Repaired With: Ethilon Suture Size/Type: 4.0/interrupted sutures Number of Sutures: 8 Progress : Wound was covered with nonstick dressing (BRIAN FLORES APRN) Course & Med Decision Making: Course & Med Decision Making Pertinent Labs and Imaging studies reviewed. (See chart for details) This is a 25-year-old female patient presented to the ED today to be evaluated after being beaten by a stray dog today. Tetanus is up-to-date. Bites are mostly on bilateral hands. Right middle finger had the worst bite on wellness open tuft fracture on x-ray, the laceration was closed as noted in procedures. Patient is allergic to amoxicillin. She was started on Cipro and clindamycin. Follow-up with Ortho (BRIAN FLORES APRN) Course & Med Decision Making I was the Attending physician on the above date of service of this patient. This patient was evaluated, examined, treated, and dispositioned from the emergency department by the mid-level practitioner. Although I was working at the time , no assistance was requested. Electronically signed, Connie Killian DO (CONNIE KILLIAN DO) Elise Disclaimer: Elise Disclaimer: This electronic medical record was generated, in whole or in part, using a voice recognition dictation system. (BRIAN FLORES APRN) Departure Departure Impression: Primary Impression: Dog bite Qualified Codes: W54.0XXA - Bitten by dog, initial encounter Additional Impression: Open fracture of tuft of distal phalanx of finger Disposition: 01 HOME / SELF CARE / HOMELESS Condition: STABLE Referrals: UNKNOWN PCP NAME (PCP) GWEN BROWNE DO call his office in the morning and set up a follow up appointment Patient Instructions: Animal Bite, [id number], Finger Fracture (Phalangeal)- [facility] Additional Instructions: You have a dog bite bilateral hands. You also have an open tuft fracture to the right middle finger. Please take the prescribed antibiotic as ordered. Please contact the provided orthopedic doctor tomorrow morning and set up a follow-up appointment. Please return to the emergency room in 5 days for stitches to be removed. Keep the laceration site clean and dry. Please apply Neosporin to the rest of the dog bites. Come back to the ED at any point wound conditions worsen Scripts Hydrocodone Bit/Acetaminophen (HYDROCODONE-APAP 10-325 ) 1 Tab Tablet 0.5 TAB PO PRN Q6HRS PRN for PAIN, #14 TAB 0 Refills Prov: BRIAN FLORES APRN 12/30/20 Clindamycin Hcl (CLINDAMYCIN HCL) 150 Mg Capsule 3 CAP PO TID, #90 CAP Prov: BRIAN FLORES APRN 12/30/20 Ciprofloxacin Hcl (CIPRO) 500 Mg Tablet 1 TAB PO BID for 10 Days, #20 TAB 0 Refills Prov: BRIAN FLORES APRN 12/30/20 BRIAN FLORES APRN Dec 30, 2020 22:40 CONNIE KILLIAN DO Dec 31, 2020 01:41
[2020-12-30] MEDS ORDERED: LIDOCAINE WITH 8.4% SOD BICARB 3 ML DISP.SYRIN. INJ ONE (23:00)
--- NOTE | 2020-12-30 23:22 | RAD ---
Three-view bilateral hand dated 12/30/2020. No comparison available. Clinical data indication: Dog bites. Pain. FINDINGS: 3 views of bilateral hand show normal bony alignment. There is a small nondisplaced fracture of the d istal tuft of the long finger on the right. Overlying soft tissue swelling and soft tissue gas. Wana us structures are otherwise intact. No radiopaque foreign body. IMPRESSION: 1. Nondisplaced fracture of the distal tuft of right long finger. 2. No acute bony abnormality on the left. Electronically signed by: Clinton Santos MD (12/30/2020 11:20 PM) [facility]
[2020-12-30] MEDS ORDERED: HYDROcodone/APAP 5/325MG 1 TAB TABLET PO ONE (23:45)
[2020-12-30] MEDS ORDERED: CIPR500T94 PO (23:59)
[2020-12-30] MEDS ORDERED: CLIN150C16 PO (23:59)
[2020-12-30] MEDS ORDERED: HYDR-2769 PO (23:59)
[2020-12-31] MEDS ORDERED: CIPROFLOXACIN HCL 250 MG TABLET. PO ONE (00:30)
[2020-12-31] MEDS ORDERED: CLINDAMYCIN HCL 150 MG CAPSULE. PO ONE (00:30)
== END 2020-12-31 00:30 | disposition home or self-care (01) ==
LOC: ER 22:09
DX: S62.662B Nondisplaced fracture of distal phalanx of right middle finger, initial encounter for open fracture (principal); S50.12XA Contusion of left forearm, initial encounter; S61.032A Puncture wound without foreign body of left thumb without damage to nail, initial encounter; S61.233A Puncture wound without foreign body of left middle finger without damage to nail, initial encounter; S61.432A Puncture wound without foreign body of left hand, initial encounter; Z88.1 Allergy status to other antibiotic agents; W54.0XXA Bitten by dog, initial encounter; Y93.89 Activity, other specified; Y92.89 Other specified places as the place of occurrence of the external cause; Y99.8 Other external cause status
CPT/HCPCS: 12002; 73130; 99284; J3490